=== PATIENT | male | born 1955 | race American Indian/Alaskan Native ===

== ENCOUNTER 2017-04-17 09:09 | Emergency (ER) | payer MEDICARE ==
--- NOTE | 2017-04-17 09:24 | Emergency Department Report ---
Chief Complaint: Skin Rash Stated Complaint: CHROHNS DISEASE/ Time Seen by Provider: 04/17/17 09:21 - HPI History of Present Illness: PT c/o rash to his L side of face x 1.5 months. PT states he has had rash on the right side of his face last year for 3 months. PT is concerned for having AIDS. - ROS Review of Systems: + weight loss - fevers + rash + drainage - Exam Physical Exam: thin male, with multiple dry scaly lesions to face and arms. + drainaged noted to L side of face MSE screening note: Focused history and physical exam performed. Due to findings the following was ordered: labs ED Disposition for MSE Condition: Stable
[2017-04-17 09:27] VITALS: BP 94/53
[2017-04-17 09:46] LABS: Basophils % (Auto) 0.4 % (0.0-1.8); Eosinophils % (Auto) 0.4 % (0.0-4.3); Hemoglobin 8.9 gm/dl (11.8-15.2); Mean Corpuscular HGB Conc 33 % (32-34); Mean Corpuscular Hemoglobin 31 pg (28-32); Mean Corpuscular Volume 95 fl (84-94); Platelet Count 328 K/mm3 (140-440); Red Blood Count 2.86 M/mm3 (3.65-5.03); White Blood Count 10.8 K/mm3 (4.5-11.0)
[2017-04-17 09:53] LABS: Red Cell Distribution Width 20.7 % (13.2-15.2)
[2017-04-17 10:16] LABS: Alanine Aminotransferase 6 units/L (7-56); Albumin 1.4 g/dL (3.9-5); Albumin/Globulin Ratio 0.2 %; Alkaline Phosphatase 81 units/L (35-129); Anion Gap 15 mmol/L; BUN/Creatinine Ratio 11.25; Blood Urea Nitrogen 9 mg/dL (9-20); Calcium 7.7 mg/dL (8.4-10.2); Carbon Dioxide 23 mmol/L (22-30); Chloride 101.7 mmol/L (98-107); Glucose 157 mg/dL (75-100); Potassium 3.2 mmol/L (3.6-5.0); Sodium 136 mmol/L (137-145); Total Protein 7.8 g/dL (6.3-8.2)
--- NOTE | 2017-04-17 13:24 | Admit Criteria Form ---
Admission Criteria Documentation: GENERAL ADMISSION CRITERIA (Place 'X' for any and all applicable criteria): Admission is indicated for ANY ONE of the following: [X ]I. Hemodynamic instability as indicated by ANY ONE of the following(1)(2 )(3)(4)(5): [X ]a) Vital sign abnormality not readily corrected by appropriate treatment within 12 to 24 hours indicated by ANY ONE of the following: [X ]i) Hypotension [ ]ii) Symptomatic Tachycardia unresponsive to treatment (eg , analgesia, fluids, sedation as indicated) [ ]iii) Orthostatic vital sign changes unresponsive to treatment (eg, fluids) [ ]b) Vital sign abnormality that is severe indicated by ANY ONE of the following: [ ]i) Inadequate perfusion indicated by ANY ONE of the following: [ ]1) Lactic acidosis (greater than 2 mmol/L) [ ]2) New abnormal capillary refill (greater than 3 seconds) [ ]3) Other metabolic acidosis (arterial pH less than 7.35) not otherwise explained [ ]4) Reduced urine output [ ]5) Altered mental status [ ]6) Myocardial Ischemia [ ]v) Mean arterial pressure[A] less than 60 mm Hg [ ]vi) Mean arterial pressure[A] less than 70 mm Hg after 30 minutes of appropriate treatment (eg, fluid resuscitation) [ ]vii) IV inotropic or vasopressor medication required to maintain adequate blood pressure or perfusion [ ]viii) Sustained heart rate greater than 120 beats per minute in adult or child 6 years or older[B]] [ ]II. Hypertension requiring inpatient treatment as indicated by ANY ONE of the following(6)(7)(8): [ ]a) SBP greater than 220 mm Hg or DBP greater than 120 mm Hg despite treatment [ ]b) SBP greater than 140 mm Hg or DBP greater than 100 mm Hg with evidence of acute end organ damage as indicated by ANY ONE of the following: [ ]i) Encephalopathy [ ]ii) Acute renal failure as indicated by new onset of ANY ONE of the following(9)(10)(11)(12)(13): [ ]1) A 3-fold rise in serum creatinine from baseline [ ]2) Serum creatinine greater than 4 mg/dL ( 354 micromoles/L) with acute rise greater than 0.5 mg/dL (44.2 micromoles/L) [ ]3) Reduction of more than 75% in estimated glomerular filtration rate from baseline [ ]4) Estimated glomerular filtration rate less than 35 mL/min/1.73m2 (0.59 mL/sec/1.73m2) in child up to 18 years of age [ ]5) Cessation of urine output indicated by ALL of the following: [ ]A. Adequate volume status [ ]B. Inadequate urine output as indicated by ANY ONE of the following: [ ]a. Urine output less than 0.3 mL/kg/hr for 24 hours [ ]b. Anuria (urine output less than 0.1 mL/kg/hr) for 12 hours [ ]iii) Aortic dissection [ ]iv) Myocardial ischemia [ ]v) Left ventricular heart failure [ ]vi) Retinal hemorrhage [ ]vii) Other significant finding [ ]c) Hypertension in child requiring inpatient treatment as indicated by ALL of the following(14)(15)(16): [ ]i) Outpatient treatment not effective, not available, or not appropriate [ ]ii) SBP or DBP greater than 95th percentile for age [ ]iii) Evidence of acute end organ damage as indicated by ANY ONE of the following: [ ]1) Altered mental status [ ]2) Acute renal failure as indicated by new onset of ANY ONE of the following(9)(10)(11)(12)(13): [ ]A. A 3-fold rise in serum creatinine from baseline [ ]B. Serum creatinine greater than 4 mg/dL (354 micromoles/L) with acute rise greater than 0.5 mg/dL (44.2 micromoles/L) [ ]C. Reduction of more than 75% in estimated glomerular filtration rate from baseline [ ]D. Estimated glomerular filtration rate less than 35 mL/min/1.73m2 (0.59 mL/sec/1.73m2)in child up to 18 years of age [ ]E. Cessation of urine output indicated by ALL of the following: [ ]a. Adequate volume status [ ]b. Inadequate urine output as indicated by ANY ONE of the following: [ ]1) Urine output less than 0.3 mL/kg/hr for 24 hours [ ]2) Anuria (urine output less than 0.1 mL/kg/hr) for 12 hours [ ]3) Severe headache [ ]4) Visual disturbance [ ]5) Retinal hemorrhage [ ]6) Other significant finding [ ]III. Acute cardiac or peripheral ischemia as indicated by ANY ONE of the following: [ ]a) Acute coronary syndrome(17)(18) [ ]b) Acute peripheral ischemia (eg, pulseless, cool, mottled, or cyanotic extremity)(19) [ ]IV. Cardiac arrhythmias or findings of immediate concern indicated by ANY ONE of the following(20)(21): [ ]a) Heart rhythms that are inherently dangerous or unstable indicated by ANY ONE of the following(22)(23)(24): [ ]i) Resuscitated ventricular fibrillation or cardiac arrest [ ]ii) Ventricular escape rhythm [ ]iii) Sustained ventricular tachycardia (30 seconds or more of ventricular rhythm at greater than 100 beats per minute) [ ]iv) Nonsustained ventricular tachycardia and ANY ONE of the following: [ ]1) Suspected cardiac ischemia as cause or consequence of ventricular tachycardia [ ]2) In setting of acute myocarditis [ ]b) Unstable cardiac conduction defects indicated by ANY ONE of the following(24)(25)(26): [ ]i) Type II second-degree atrioventricular block [ ]ii) Third-degree atrioventricular block [ ]iii) New-onset left bundle branch block with suspected myocardial ischemia [ ]c) Any heart rhythm and ANY ONE of the following(22)(23)(27)(28)( 29): [ ] i) Continuous long-term ECG monitoring needed (eg, initiation of drug requiring monitoring for more than 24 hours) [ ] ii) Patient has automatic implanted cardioverter defibrillator that is repeatedly firing, malfunctioning, or in need of immediate adjustment of settings beyond the scope of ambulatory or observation care. [ ]d) Heart rhythms of concern due to ANY ONE of the following: [ ]i) Hypotension [ ]ii) Respiratory distress [ ]iii) Association with other significant symptoms (eg, bradycardia with syncope or ongoing dizziness, supraventricular tachycardia with chest pain) (27)(28) (30) [ ] V. Severe heart failure as indicated by ANY ONE of the following ( 31)(32): [ ]a) Respiratory distress [ ]b) Hypotension [ ]c) Anasarca (refractory to outpatient therapy) [ ]d) Cardiac arrhythmias of immediate concern [ ]e) Myocardial ischemia [ ]. Respiratory abnormalities, including ANY ONE of the following(33)(34) (35)(36): [ ]a) Respiratory rate greater than 30 breaths per minute unresponsive to treatment [A] [ ]b) New saturation of arterial oxygen less than 90% [ ]c) New partial pressure of carbon dioxide greater than 44 mm Hg ( 5.9 kPa) [ ]d) Supplemental oxygen or respiratory treatments needed that are new or not performable at other levels of care [ ]e) New-onset cyanosis [ ]f) Inability to protect airway [ ]g) Chronic lung disease with severe deterioration (not responsive to emergency and observation care treatment as appropriate) as indicated by ANY ONE of the following(34)(36 ): [ ]i) SaO2 5% below baseline in patient with chronic hypoxemia [ ]ii) New requirement for supplemental oxygen to keep SaO2 at baseline or acceptable level [ ]iii) Required supplemental oxygen performable only in acute inpatient setting [ ]iv) Severe airflow or ventilation abnormalities [ ]v) Previously mobile patient unable to walk between rooms [ ]vi Inability to eat or sleep due to dyspnea [ ]vii) Rapid rate of exacerbation onset [ ]viii) Altered mental status ]VII. Severe airflow or ventilation abnormalities (not responsive to emergency and observation care treatment as appropriate) as indicated by ANY ONE of the following(33)(34)(35)(37): [ ]a) PCO2 greater than 42 mm Hg (5.6 kPa) and pH less than 7.35 (new ) [ ]b) Documented PCO2 increased more than 5 mm Hg (0.7 kPa) from disease baseline [ ]c) Airflow measurements [B] less than 60% of previous best or predicted (eg, peak expiratory flow rate less than 300 L/minute) despite intensive emergent treatment [C] [ ]d) Required respiratory treatments that are performable only in acute inpatient setting [ ]VIII. Impending or actual respiratory arrest ( Also use Respiratory Failure GRG for severe respiratory disease and long-term mechanical ventilation patients) [ ]IX. Neurologic abnormalities, including ANY ONE of the following: [ ]a) New findings that suggest ANY ONE of the following: [ ]i) CREDIT REFERENCE CLERK infection(38) [ ]ii) Cerebral bleeding, ischemia, or vasospasm(39)(40) [ ]iii) Increased intracranial pressure, hydrocephalus, or cerebral edema(41)(42)(43) [ ]iv) Spinal cord injury(44) [ ]b) Uncontrolled seizures(45) [ ]c) New-onset coma (eg, Efrain coma scale score less than 9) or unexplained abnormal mental status (eg, Valera coma scale score less than 14) [D](41)(46)(47) [ ]X. New-onset severe neurologic findings requiring inpatient care; examples include(42)(48)(49): [ ]a) Papilledema [ ]b) Cerebral edema [ ]c) Mass effect on CT scan [ ]XI. Suspected acute intra-abdominal process with peritoneal signs, abdominal mass, or similar findings (50)(51)(52) [ ]XII. Severe physiologic disorder remaining after emergency or observation level care (as appropriate) as indicated by ANY ONE of the following (53): [ ]a) Significant dehydration [ ]b) Diabetic ketoacidosis [ ]c) Hyperglycemic hyperosmolar state (eg, osmolality greater than 320 mOsm/kg (mmol/kg) [ ]d) Hypoglycemia [ ]e) Other (new) acid-base disorder with pH less than 7.35 or greater than 7.5(54) [ ]f) Thyroid storm (55) [ ]g) Myxedema coma (55) [ ]XIII. Abdominal abnormalities with ANY ONE of the following(56)(57): [ ]a) Absent bowel sounds with complete ileus [ ]b) Signs of intestinal obstruction or peritonitis [E] [ ]c) Nausea and vomiting that cannot be controlled with outpatient or observation care [ ]XIV. Acute renal failure as indicated by new onset of ANY ONE of the following(9)(10)(11)(12)(13): [ ]a) A 3-fold rise in serum creatinine from baseline [ ]b) Serum creatinine greater than 4 mg/dL (354 micromoles/L) with acute rise greater than 0.5 mg/dL (44.2 micromoles/L) [ ]c) Reduction of more than 75% in estimated glomerular filtration rate from baseline [ ]d) Estimated glomerular filtration rate less than 35 mL/min/ 1.73m2 (0.59 mL/sec/1.73m2) in child up to 18 years of age [ ]e) Cessation of urine output indicated by ALL of the following: [ ]i) Adequate volume status [ ]ii) Inadequate urine output as indicated by ANY ONE of the following: [ ]1) Urine output less than 0.3 mL/kg/hr for 24 hours [ ]2) Anuria (urine output less than 0.1 mL/kg/hr) for 12 hours [ ]XV. Significant uremic complications as indicated by ANY ONE of the following(58)(59)(60): [ ]a) Outpatient therapy is ineffective or not feasible for ANY ONE of the following: [ ]i) Severe heart failure [ ]ii) Severehypertension [ ]iii) Pleural effusion [ ]iv) Pericarditis or pericardial effusion [ ]b) Cardiac arrhythmias of immediate concern [ ]c) Intractable nausea or vomiting [ ]d) Recurrent seizures [ ]e) Encephalopathy [ ]f) Bleeding abnormalities (eg, platelet dysfunction) with active (eg, gastrointestinal) bleeding [ ]g) Dialysis indicated before long-term access or ambulatory arrangements can be made [ ]h) Significant metabolic or electrolyte abnormalities (eg, severe acidosis or hyperkalemia) [ ]XVI. High fever or other high-risk infection situation as indicated by ANY ONE of the following(61)(62)(63)(64): [ ]a) Outpatient and observation care antimicrobial treatment unavailable, not effective, or not appropriate [ ]b) Documented bacteremia [ ]c) Temperature greater than 40.5 degrees C (104.9 degrees F) ( oral) [ ]d) Temperature greater than 39.5 degrees C (103.1 degrees F) ( oral) or less than 36 degrees C (96.8 degrees F) (rectal) that does not respond to e treatment and observation care [ ] XVII. Temperature less than 95 degrees F (35 degrees C)(rectal)(65) [ ] XVIII. Severe nutritional abnormalities as indicated by ALL of the following (66)(67): [ ]a) Inability to tolerate or establish sufficient oral or other enteral nutrition in outpatient setting [ ]b) Parenteral nutrition regimen need that must be implemented on inpatient basis [ ] XIX. Severe electrolyte abnormalities indicated by ALL of the following(68) (69)(70): [ ]a) Electrolytes and associated findings are not as expected for patient baseline or acceptable treatment effects. [ ]b) Severe abnormalities indicated by ANY ONE of the following: [ ]i) Sodium less than 130 mEq/L (mmol/L) (new) [ ]ii)Sodium less than 135 mEq/L (mmol/L) with ANY ONE of the following: [ ]1) Uncorrectable (to near normal or chronic baseline) after trial of outpatient and emergency treatment [ ]2) Altered mental status [ ]3) Seizures [ ]4) Severe medical etiology requiring inpatient management (eg, heart failure, hypovolemia) [ ]iii) Sodium greater than 155 mEq/L (mmol/L) [ ]iv) Sodium greater than 150 mEq/L (mmol/L) with ANY ONE of the following: [ ]1) Uncorrectable (to near normal or chronic baseline) with outpatient and emergency treatment [ ]2) Altered mental status [ ]3) Seizures [ ]4) Severe medical etiology (eg, hypovolemia, diabetes insipidus) [ ]v) Potassium less than 2.5 mEq/L (mmol/L) despite outpatient and emergency treatment [ ]vi) Potassium less than 3 mEq/L (mmol/L) with ANY ONE of the following: [ ]1) Weakness [ ]2) Cardiac abnormality (eg, arrhythmia, conduction disturbance) [ ]3) Cardiac ischemia [ ]4) Ileus [ ]5) Ongoing medical cause requiring inpatient management (eg, acute renal wasting or SIADH) [ ]6) Other severe symptoms [ ]vii) Potassium greater than 6.5 mEq/L (mmol/L) [ ]viii) Potassium greater than 5 mEq/L (mmol/L) with ANY ONE of the following: [ ]1) Uncorrectable (to near normal or chronic baseline) with outpatient and emergency treatment [ ]2) Severe ECG findings [F] [ ]3) Acute worsening of renal failure (creatinine greater than 2.5 mg/dL (221 micromoles/L) or significant elevation for age and size) [ ]4) Severe weakness [ ]5) Severe medical etiology (eg, hemolysis, infection, drug overdose) [ ]ix) Calcium less than 7 mg/dL (1.75 mmol/L) despite outpatient and emergency treatment (72) [ ]x) Calcium less than 8 mg/dL (2 mmol/L) with significant symptoms or findings; examples include(72): [ ]1) Altered mental status [ ]2) Muscle spasms [ ]3) Seizures [ ]4) Breathing difficulty [ ]5) Cardiac abnormality (eg, arrhythmia or conduction disturbance) [ ]xi) Calcium greater than 14 mg/dL (3.5 mmol/L)(72) [ ]xii) Calcium greater than 12 mg/dL (3 mmol/L) with ANY ONE of the following(72): [ ]1) Uncorrectable (to near normal or chronic baseline) with outpatient and emergency treatment [ ]2) Significant dehydration or hypovolemia as indicated by ALL of the following(70)(73)(74): [ ]A. Not resolved with initial treatments [ ]B. Clinically significant dehydration as indicated by ANY ONE of the following: [ ]a. Vomiting refractory to outpatient treatment (ie, precluding oral rehydration) [ ]b. Inability to drink [ ]c. Hypernatremia or other electrolyte abnormality unable to be corrected with outpatient and emergency treatment [ ]d. Failure to remain hydrated with outpatient therapy [ ]e. Reduced urine output [ ]f. Hypotension [ ]g. Serious cause for dehydration requiring acute hospitalization (eg, bowel obstruction, increased intracranial pressure, infectious cause) [ ]h. Child with ANY ONE of the following(75): [ ]1) Severe abdominal tenderness [ ]2) Adequate care not available at home [ ]3) Severe dehydration ( greater than 9% loss of body weight) [ ]4) Significant symptoms or findings; examples include: [ ]A. Altered mental status [ ]B. Cardiac abnormality (eg, arrhythmia, conduction disturbance) [ ]C. Malignant etiology requiring inpatient treatment [ ]xiii) Phosphorus less than 1 mg/dL (0.32 mmol/L) [ ]xiv) Phosphorus less than 1.5 mg/dL (0.48 mmol/L) with ANY ONE of the following: [ ]1) Patient unresponsive to outpatient and emergency treatment [ ]2) Significant symptoms or findings; examples include: [ ]A. Weakness [ ]B. Altered mental status [ ]C. Breathing difficulty [ ]D. Seizures [ ]E. Rhabdomyolysis [ ]xv) Phosphorus greater than 10 mg/dL (3.2 mmol/L) [ ]xvi) Phosphorus greater than 4.5 mg/dL (1.45 mmol/L) (new) with ANY ONE of the following: [ ]1) Severe medical etiology (eg, crush injury, acute renal failure) [ ]2) Associated hypocalcemia with significant findings; examples include: [ ]A. Neurologic symptoms [ ]B. Altered mental status [ ]C. Muscle spasms [ ]D. Seizures [ ]E. Breathing difficulty [ ]F. Cardiac abnormality (eg, arrhythmia, conduction disturbance) [ ]xvii) Magnesium less than 1 mg/dL (0.41 mmol/L) [ ]xviii) Magnesium less than 1.5 mg/dL (0.62 mmol/L) with ANY ONE of the following: [ ]1) Patient unresponsive to outpatient and emergency treatment [ ]2) Associated hypocalcemia with significant findings; examples include: [ ]A. Altered mental status [ ]B. Muscle spasms [ ]C. Seizures [ ]D. Breathing difficulty [ ]E. Cardiac abnormality (eg, arrhythmia , conduction disturbance) [ ]3) Associated hypokalemia (potassium less than 3 mEq/L (mmol/L)) with risk of arrhythmia [ ]xix) Magnesium greater than 4 mEq/L (2 mmol/L) [ ]xx) Magnesium greater than 2.5 mEq/L (1.25 mmol/L) with significant symptoms or findings; examples include: [ ]1) Weakness [ ]2) Altered mental status [ ]3) Cardiac abnormality (eg, arrhythmia, conduction disturbance) [ ]4) Breathing difficulty [ ]5) Severe medical etiology (eg, renal failure, hypovolemia) [ ]xxi) Uric acid greater than 20 mg/dL (1190 micromoles/L)(76) [ ]xxii) Uric acid greater than 8 mg/dL (476 micromoles/L) with significant symptoms or findings of tumor lysis syndrome; examples include(76): [ ]1) Creatinine greater than 1.5 times upper limit of normal [ ]2) Cardiac abnormality (eg, arrhythmia, conduction disturbance) [ ]3) Seizure [ ]XX. Acute blood loss causing significant abnormality as indicated by ANY ONE of the following(77)(78): [ ]a) Hemoglobin less than 10 g/dL (100 g/L) (not baseline) [ ]b) Hematocrit less than 30% (0.30) (not baseline) [ ]c) Repeat hematocrit decreased more than 2% (0.02) [ ]d) Uncontrolled bleeding [ ]XXI. Severe anemia indicated by ANY ONE of the following(78)(79): [ ]a) Altered mental status [ ]b) Chest pain [ ]c) Exertional dyspnea [ ]d) Syncope [ ]e) Other findings suggesting inadequate perfusion [ ]f) Treatment with transfusion or volume replacement is ineffective at resolving ANY ONE of the following [G]: [ ]i) Tachycardia for age [ ]ii) Orthostatic vital sign changes as indicated by ANY ONE of the following(80): [ ]1) Fall in SBP of 20 mm Hg or more 1 to 3 minutes after patient sits or stands from recumbent position [ ]2) Fall in DBP of 10 mm Hg or more 1 to 3 minutes after patient sits or stands from recumbent position [ ]XXII. High-risk low platelet count as indicated by ANY ONE of the following( 81)(82): [ ]a) Severe or life-threatening bleeding (eg, intracranial, major gastrointestinal, or extensive mucosal bleeding), with any reduced platelet count [ ]b) Platelet count less than 20,000/mm3 (20 x109/L) with any active bleeding [ ]c) Platelet count less than 10,000/mm3 (10 x109/L) with minor purpura or petechiae [ ]d) Platelet count less than 5000/mm3 (5 x109/L) [ ]e) Low platelet count with hemolytic anemia [ ]XXIII. Disseminated intravascular coagulation(77)(83) [ ]XXIV. Severe adverse drug or systemic toxin reaction requiring inpatient treatment; examples include(84)(85): [ ]a) Serotonin syndrome(86) [ ]b) Neuroleptic malignant syndrome(86) [ ]c) Cholinergic syndrome with severe symptoms (eg, bronchorrhea, weakness, mental status changes, seizures) [ ]d) Sympathetic syndrome with severe symptoms (eg, seizures, mental status changes, cardiac dysrhythmias) [ ]e) Anticholinergic syndrome [ ]XXV. Severe pain requiring acute inpatient management as indicated by ALL of the following (87)(88)(89): [ ]a) Continuous or frequent (eg, every 2 to 4 hours) parenteral analgesics required [H] [ ]b) Rapid improvement expected from treatment or acute intervention (eg, surgery, anesthesia procedure) [ ]XXVI.Severe behavioral health issues judged unmanageable at a lower level of care (eg, residential) in a patient who is ANY ONE of the following(91) [ ]a) Acutely suicidal [ ]b) A danger to self (eg, self-mutilating or suicidal behavior) [ ]c) A danger to others (eg, assaultive or homicidal behavior) [ ]d) Incapacitated because of grave disability (eg, inability to provide for self at lower level of care) (92) [ ]XXVII. Inpatient monitoring needed; examples include(1)(3)(87)(93)(94)(95)(96 ): [ ]a) Vital signs, neurologic signs, or vascular checks more frequently than every 4 hours [ ]b) Cardiac or respiratory monitoring beyond the scope (eg, over 24 hours) of observation care [ ]c) Pulmonary artery catheter monitoring [ ]d) Suspected compartment syndrome(97) (98) [ ]e) Cerebral bleeding, hydrocephalus, or vasospasm monitoring [ ]f) Increased intracranial pressure or cerebral edema monitoring [ ]g) monitoring [ ]XXVIII. Treatment requiring inpatient care; examples include: [ ]a) IV fluid to replace significant ongoing losses (greater than 3 L/m2 per day)(53) [ ]b) High concentration oxygen (greater than 40%)(33)(99)(100) [ ]c) Frequent respiratory therapy (more frequently than every 4 hours) to maintain airflow rates greater than 60% of baseline(33)(99)(100) [ ]d) Epidural analgesia(87) [ ]e) IV anticoagulation, vasoactive, or antiarrhythmic medication(19 )(23) [ ]f) Acute thrombolytics (generally require 24 hours of observation )(101)(102) [ ]XXIX. Emergency procedures needed; examples include: [ ]a) Emergency inpatient surgery [ ]b) Temporary pacemaker placement(103) [ ]c) Chest tube placement with active evacuation (eg, suction, drainage)(104) [ ]d) Emergent cardioversion(105) [ ]e) Emergent cardiac or vascular procedures (eg, cardiac catheterization, angioplasty) (17)(18) [ ]f) Emergent dialysis access placement and institution(10)(106) [ ]g) Emergent pericardiocentesis(107) [ ]h) Emergent plasmapheresis or leukapheresis(83) [ ]i) Emergent tracheostomy The original [employer] content created by [employer] has been revised. The portions of the content which have been revised are identified through the use of italic text or in bold, and [employer] has neither reviewed nor approved the modified material. All other unmodified content is copyright [employer]. Please see references footnoted in the original [employer] edition 2016
[2017-04-17] MEDS ORDERED: CLEOCIN PO ONE (13:36)
--- NOTE | 2017-04-17 13:39 | Emergency Department Report ---
- General Chief complaint: Skin/Abscess/Foreign Body Stated complaint: CHROHNS DISEASE/ Time Seen by Provider: 04/17/17 09:21 Source: patient Mode of arrival: Ambulatory Limitations: No Limitations - History of Present Illness MD complaint: rash (generalized, similar symptoms with exacerbation of chrons) -: Gradual, week(s) Location: generalized Severity: mild Severity scale (0 -10): 1 Quality: aching Consistency: intermittent Improves with: none Worsens with: none Context: other (non-compliant with chrons medications) Associated symptoms: denies other symptoms - Related Data Previous Rx's Medication Instructions Recorded Last Taken Type Clindamycin [Clindamycin CAP] 300 mg PO Q8H #30 cap 04/17/17 Unknown Rx Allergies Allergy/AdvReac Type Severity Reaction Status Date / Time Sulfa (Sulfonamide AdvReac JAUNDICE Verified 04/17/17 09:18 Antibiotics) Abscess Boil HPI - HPI Chief Complaint: Skin/Abscess/Foreign Body Stated Complaint: CHROHNS DISEASE/ Time Seen by Provider: 04/17/17 09:21 Home Medications: Previous Rx's Medication Instructions Recorded Last Taken Type Clindamycin [Clindamycin CAP] 300 mg PO Q8H #30 cap 04/17/17 Unknown Rx Allergies/Adverse Reactions: Allergies Allergy/AdvReac Type Severity Reaction Status Date / Time Sulfa (Sulfonamide AdvReac JAUNDICE Verified 04/17/17 09:18 Antibiotics) ED Review of Systems ROS: Stated complaint: CHROHNS DISEASE/ Other details as noted in HPI Other: GENERAL: No weight change, fatigue, weakness, fever, chills, or night sweats SKIN: skin changes for over month believes that it is related to not taking chrons medications. Reports a doctor follows him for chrons in [place] HEAD: No trauma, headache, or visual changes EYES: No blurriness, tearing, itching, acute visual loss, conjunctival discoloration, or scleral icterus EARS: No hearing loss, tinnitus, vertigo, or earache NOSE: No rhinorrhea, stuffiness, sneezing, itching, or epistaxis MOUTH: No bleeding gums, hoarseness, sore throat, or swelling CARDIAC: No new murmur, chest pain, palpitations, dyspnea on exertion, orthopnea , PND, or edema RESPIRATORY: No shortness of breath, wheeze, cough, sputum production, hemoptysis, pneumonia, asthma, bronchitis, or emphysema GI: No change in appetite, nausea, vomiting, dysphagia, change in bowel frequency, diarrhea, constipation, bleeding, hematemesis, melena, hematochezia, or abdominal pain URINARY: No frequency, urgency, polyuria, dysuria, hematuria, or incontinence MUSCULOSKELETAL: No muscle weakness, joint stiffness, decrease in range of motion, redness, swelling, tenderness NEUROLOGIC: No loss of sensation, numbness, tingling, tremors, weakness, paralysis, seizures HEMATOLOGIC: No anemia, easy bruising, bleeding, petechiae, or purpura ENDOCRINE: No hot or cold intolerance, sweating, polyuria, polydipsia or, polyphagia no thyroid problems PSYCHIATRIC: No change in mood, no anxiety, no depression ED Past Medical Hx - Past Medical History Additional medical history: CROHNS DISEASE. ANEMIA - Surgical History Additional Surgical History: BOWEL RESECTION - Social History Smoking Status: Current Every Day Smoker Substance Use Type: Alcohol - Medications Home Medications: Home Medications Medication Instructions Recorded Confirmed Last Taken Type Clindamycin [Clindamycin CAP] 300 mg PO Q8H #30 cap 04/17/17 Unknown Rx ED Physical Exam - General Limitations: No Limitations - Other Other exam information: GENERAL: Patient in no acute distress HEAD: Normocephalic, atraumatic EYES: PERRLA, EOM intact, no scleral icterus, no conjunctival hemorrhage, visual ngo and acuity wnl, NOSE: No tenderness, discharge, sinus tenderness MOUTH: No erythema, bleeding, exudate HEART: Regular rate and rhythm, no murmur, S1-S2 are auscultated, pulses are symmetric LUNGS: No wheezing, rales, rhonchi, bilateral breath sounds ABDOMEN: Normal bowel sounds, no tenderness, no rebound, no guarding, no masses , no CVA tenderness MUSCULOSKELETAL: Normal joint range of motion, no redness, no swelling, no tenderness NEUROLOGIC: GCS 15, Alert and Oriented x3, Cranial nerves intact, normal sensation, normal strength, normal gait, no cerebellar deficit PSYCHIATRIC: No homicidal or suicidal ideation, no anxiety, no depression, no hallucinations SKIN: Skin is warm and dry, macular papular scabs generalized no discharge, no swelling ED Course Vital Signs 04/17/17 04/17/17 09:21 13:37 Temperature 97.6 F Pulse Rate 78 Respiratory 17 16 Rate Blood Pressure 94/53 O2 Sat by Pulse 100 98 Oximetry ED Medical Decision Making - Lab Data Result diagrams: 04/17/17 09:28 04/17/17 09:28 - Medical Decision Making Patient comfortable. Updated with results. Plan discharge with outpatient follow-up. Patient agrees with plan and will return if symptoms worsen. Engcouraged patient to follow up with his chrons doctor for evaluation for chrons medications. Critical care attestation.: If time is entered above; I have spent that time in minutes in the direct care of this critically ill patient, excluding procedure time. ED Disposition Clinical Impression: Cellulitis Qualifiers: Site of cellulitis: unspecified site Qualified Code(s): L03.90 - Cellulitis, unspecified Disposition: DC- TO HOME OR SELFCARE Is pt being admited?: No Condition: Stable Instructions: Cellulitis (ED) Prescriptions: Clindamycin [Clindamycin CAP] 300 mg PO Q8H #30 cap Referrals: [facility] [Primary Care Provider] - 2-3 Days [facility] [Provider Group] - 2-3 Days Time of Disposition: 13:38
--- NOTE | 2017-04-18 14:47 | Consultation ---
History of Present Illness - Reason for Consult Consult date: 04/18/17 Medications and Allergies Allergies Allergy/AdvReac Type Severity Reaction Status Date / Time Sulfa (Sulfonamide AdvReac JAUNDICE Verified 04/17/17 09:18 Antibiotics) Home Medications Medication Instructions Recorded Confirmed Last Taken Type Clindamycin [Clindamycin CAP] 300 mg PO Q8H #30 cap 04/17/17 Unknown Rx Mental Status Exam - Vital signs Last Vital Signs Temp 97.6 F 04/17/17 09:21 Pulse 78 04/17/17 09:21 Resp 16 04/17/17 13:37 BP 94/53 04/17/17 09:21 Pulse Ox 98 04/17/17 13:37 Results Result Diagrams: 04/17/17 09:28 04/17/17 09:28 All other labs normal. Assessment and Plan Assessment and plan: paranoid Recommendation: [id number]-discussed with Dr. Blake
== END 2017-04-17 14:35 | disposition home or self-care (01) ==
LOC: ED 09:09
DX: R21 Rash and other nonspecific skin eruption (principal); L03.818 Cellulitis of other sites; K50.90 Crohn's disease, unspecified, without complications; D64.9 Anemia, unspecified; F17.200 Nicotine dependence, unspecified, uncomplicated; Z88.2 Allergy status to sulfonamides
CPT/HCPCS: 36415; 80053; 84443; 85025; 99283

== ENCOUNTER 2017-05-04 05:34 | Emergency (ER) | payer MEDICARE ==
[2017-05-04 06:24] LABS: Basophils % (Auto) 0.2 % (0.0-1.8); Eosinophils % (Auto) 0.3 % (0.0-4.3); Hematocrit 28.5 % (35.5-45.6); Hemoglobin 9.3 gm/dl (11.8-15.2); Mean Corpuscular HGB Conc 33 % (32-34); Mean Corpuscular Hemoglobin 30 pg (28-32); Mean Corpuscular Volume 92 fl (84-94); Platelet Count 358 K/mm3 (140-440); Red Blood Count 3.11 M/mm3 (3.65-5.03); White Blood Count 12.4 K/mm3 (4.5-11.0)
[2017-05-04 06:31] LABS: Alanine Aminotransferase 6 units/L (7-56); Albumin 1.6 g/dL (3.9-5); Albumin/Globulin Ratio 0.3 %; Alkaline Phosphatase 80 units/L (35-129); Anion Gap 11 mmol/L; Blood Urea Nitrogen 12 mg/dL (9-20); Calcium 7.7 mg/dL (8.4-10.2); Carbon Dioxide 30 mmol/L (22-30); Chloride 102.2 mmol/L (98-107); Glucose 90 mg/dL (75-100); Sodium 140 mmol/L (137-145); Total Protein 7.5 g/dL (6.3-8.2)
[2017-05-04 06:39] LABS: Bilirubin,Direct < 0.2 mg/dL (0-0.2)
[2017-05-04] MEDS ORDERED: K-DUR PO ONE (06:46)
--- NOTE | 2017-05-04 06:46 | Emergency Department Report ---
ED General Adult HPI - General Chief complaint: Urogenital-Male Stated complaint: BLOOD IN URINE Time Seen by Provider: 05/04/17 06:44 Source: patient Mode of arrival: Ambulatory Limitations: No Limitations - History of Present Illness Initial comments: Patient states that he noted that he had blood in his urine last night and again when he urinated here. He does not complain of back pain. He does not complain of dysuria. He states he's had urine infections before but not kidney stones. He denies nausea vomiting or significant diarrhea. He states he would like to transfer his care from [facility] to a machine deburrer here in [facility]. He has a history of Crohn's disease and is on Remicade and mercaptopurine. He has a chronic skin disorder which she states she's been seen by dermatology clinic at [facility] for. He states that that periodically his skin lesions started to weep and he gets placed on antibiotics. He states this is secondary to his Crohns. He is not complaining of abdominal pain. -: Gradual Severity scale (0 -10): 0 Improves with: none Worsens with: none Associated Symptoms: denies other symptoms - Related Data Previous Rx's Medication Instructions Recorded Last Taken Type Clindamycin [Clindamycin CAP] 300 mg PO Q8H #30 cap 04/17/17 Unknown Rx Cefuroxime [Ceftin] 250 mg PO Q12H #14 tablet 05/04/17 Unknown Rx Allergies Allergy/AdvReac Type Severity Reaction Status Date / Time Sulfa (Sulfonamide AdvReac JAUNDICE Verified 04/17/17 09:18 Antibiotics) ED Review of Systems ROS: Stated complaint: BLOOD IN URINE Other details as noted in HPI Constitutional: denies: chills, fever Eyes: denies: eye pain, eye discharge, vision change ENT: denies: ear pain, throat pain Respiratory: denies: cough, shortness of breath, wheezing Cardiovascular: denies: chest pain, palpitations Endocrine: no symptoms reported Gastrointestinal: denies: abdominal pain, nausea, diarrhea Genitourinary: hematuria. denies: urgency, dysuria Musculoskeletal: denies: back pain, joint swelling, arthralgia Skin: as per HPI, rash, lesions Neurological: denies: headache, weakness, paresthesias Psychiatric: denies: anxiety, depression Hematological/Lymphatic: denies: easy bleeding, easy bruising ED Past Medical Hx - Past Medical History Previous Medical History?: Yes Additional medical history: CROHNS DISEASE. ANEMIA - Surgical History Past Surgical History?: Yes Additional Surgical History: BOWEL RESECTION - Social History Smoking Status: Current Every Day Smoker Substance Use Type: Alcohol - Medications Home Medications: Home Medications Medication Instructions Recorded Confirmed Last Taken Type Clindamycin [Clindamycin CAP] 300 mg PO Q8H #30 cap 04/17/17 Unknown Rx Cefuroxime [Ceftin] 250 mg PO Q12H #14 tablet 05/04/17 Unknown Rx ED Physical Exam - General Limitations: No Limitations General appearance: alert, in no apparent distress, cachectic (at least nutritionally deprived and asthenic) - Head Head exam: Present: atraumatic, normocephalic - Eye Eye exam: Present: normal appearance. Absent: scleral icterus - ENT ENT exam: Present: normal exam, mucous membranes moist - Neck Neck exam: Present: normal inspection - Respiratory Respiratory exam: Present: normal lung sounds bilaterally. Absent: respiratory distress - Cardiovascular Cardiovascular Exam: Present: regular rate, normal rhythm. Absent: systolic murmur, diastolic murmur, rubs, gallop - GI/Abdominal GI/Abdominal exam: Present: soft, normal bowel sounds. Absent: distended, tenderness, guarding, rebound, rigid - Rectal Rectal exam: Present: deferred - Extremities Exam Extremities exam: Present: normal inspection - Back Exam Back exam: Present: normal inspection - Neurological Exam Neurological exam: Present: alert, oriented X3, CN II-XII intact. Absent: motor sensory deficit - Psychiatric Psychiatric exam: Present: normal affect, normal mood - Skin Skin exam: Present: warm, dry, other (the patient has multiple elevated plaques some of which are oozing.). Absent: rash ED Course Vital Signs 05/04/17 05/04/17 05/04/17 05:45 05:52 07:26 Temperature 98.2 F 98.2 F Pulse Rate 73 73 Respiratory 20 20 Rate Blood Pressure 102/65 Blood Pressure 102/65 [Left] O2 Sat by Pulse 100 100 100 Oximetry 05/04/17 05/04/17 05/04/17 07:27 07:28 07:30 Temperature Pulse Rate 53 L Respiratory 17 Rate Blood Pressure 116/62 116/62 115/63 Blood Pressure [Left] O2 Sat by Pulse 100 100 100 Oximetry 05/04/17 08:00 Temperature Pulse Rate 47 L Respiratory 12 Rate Blood Pressure 104/65 Blood Pressure [Left] O2 Sat by Pulse 100 Oximetry - Reevaluation(s) Reevaluation #1: Going to begin this patient on ceftriaxone for his UTI now. Ceftin to follow. Appropriate referrals to urology and GI as well as primary care. I will encourage the patient to follow-up with [facility] until he is been accepted by local physicians. 05/04/17 09:16 ED Medical Decision Making - Lab Data Result diagrams: 05/04/17 05:58 05/04/17 05:58 Laboratory Results - last 24 hr 05/04/17 05/04/17 05:58 05:58 WBC 12.4 H RBC 3.11 L Hgb 9.3 L Hct 28.5 L MCV 92 MCH 30 MCHC 33 RDW 19.0 H Plt Count 358 Lymph % (Auto) 10.7 L [place] % (Auto) 11.4 H Eos % (Auto) 0.3 Baso % (Auto) 0.2 Lymph # 1.3 [place] # 1.4 H Eos # 0.0 Baso # 0.0 Seg Neutrophils % 77.4 H Seg Neutrophils # 9.6 H Sodium 140 Potassium 3.0 L Chloride 102.2 Carbon Dioxide 30 Anion Gap 11 BUN 12 Creatinine 1.0 Estimated GFR > 60 BUN/Creatinine Ratio 12.00 Glucose 90 Calcium 7.7 L Total Bilirubin 0.20 Direct Bilirubin < 0.2 Indirect Bilirubin 0.0 AST 8 ALT 6 L Alkaline Phosphatase 80 Total Protein 7.5 Albumin 1.6 L Albumin/Globulin Ratio 0.3 Laboratory Results - last 24 hr 05/04/17 05/04/17 05/04/17 05:58 05:58 06:15 WBC 12.4 H RBC 3.11 L Hgb 9.3 L Hct 28.5 L MCV 92 MCH 30 MCHC 33 RDW 19.0 H Plt Count 358 Lymph % (Auto) 10.7 L [place] % (Auto) 11.4 H Eos % (Auto) 0.3 Baso % (Auto) 0.2 Lymph # 1.3 [place] # 1.4 H Eos # 0.0 Baso # 0.0 Seg Neutrophils % 77.4 H Seg Neutrophils # 9.6 H Sodium 140 Potassium 3.0 L Chloride 102.2 Carbon Dioxide 30 Anion Gap 11 BUN 12 Creatinine 1.0 Estimated GFR > 60 BUN/Creatinine Ratio 12.00 Glucose 90 Calcium 7.7 L Total Bilirubin 0.20 Direct Bilirubin < 0.2 Indirect Bilirubin 0.0 AST 8 ALT 6 L Alkaline Phosphatase 80 Total Protein 7.5 Albumin 1.6 L Albumin/Globulin Ratio 0.3 Urine Color Yellow Urine Turbidity Clear Urine pH 5.0 Ur Specific [place] 1.017 Urine Protein 30 mg/dl Urine Glucose (UA) Neg Urine Ketones Neg Urine Blood Lg Urine Nitrite Neg Urine Bilirubin Neg Urine Urobilinogen < 2.0 Ur Leukocyte Esterase Tr Urine WBC (Auto) 51.0 H Urine RBC (Auto) > 182.0 Critical care attestation.: If time is entered above; I have spent that time in minutes in the direct care of this critically ill patient, excluding procedure time. ED Disposition Clinical Impression: UTI (urinary tract infection) Qualifiers: Urinary tract infection type: site unspecified Hematuria presence: with hematuria Qualified Code(s): N39.0 - Urinary tract infection, site not specified ; R31.9 - Hematuria, unspecified Crohns disease Qualifiers: Gastrointestinal tract location: unspecified location Digestive disease complication type: without complication Qualified Code(s): K50.90 - Crohn's disease, unspecified, without complications Disposition: - TO HOME OR SELFCARE Is pt being admited?: No Does the pt Need Aspirin: No Condition: Stable Instructions: Urinary Tract Infection in Men (ED), Crohn Disease (ED) Additional Instructions: Obviously had a very complicated case of Crohns. I certainly would recommend that you continue your care with [facility] until you get local physicians who have accepted a transfer of your care. You need to follow-up on your urine culture which will be ready in 2-3 days. Return to the emergency department any acute change or problem. Prescriptions: Cefuroxime [Ceftin] 250 mg PO Q12H #14 tablet Referrals: [facility] [Provider Group] - 3-5 Days [facility] [Provider Group] - 3-5 Days SONY OSULLIVAN MD [Staff Physician] - 3-5 Days [facility] [Provider Group] - 2-3 Days Time of Disposition: 09:18
[2017-05-04 06:53] LABS: Bilirubin,Urine NEG (Negative); Blood,Urine LG (Negative); Ketones,Urine NEG (Negative); Leukocyte Esterase,Urine TR (Negative); Nitrite,Urine NEG (Negative); Urobilinogen,Urine < 2.0 mg/dL (<2.0)
[2017-05-04 06:54] LABS: RBC,Urine > 182.0 /HPF (0.0-6.0)
[2017-05-04] MEDS ORDERED: ROCEPHIN IM ONE (09:22)
[2017-05-04] MEDS ORDERED: XYLOCAINE 1% MPF 5 mL INFILTRATI ONE (09:22)
[2017-05-04 09:36] VITALS: BP 125/59
== END 2017-05-04 09:36 | disposition home or self-care (01) ==
LOC: ED 05:34
DX: R31.9 Hematuria, unspecified (principal); N39.0 Urinary tract infection, site not specified; K50.90 Crohn's disease, unspecified, without complications; D64.9 Anemia, unspecified; F17.200 Nicotine dependence, unspecified, uncomplicated; Z88.2 Allergy status to sulfonamides
CPT/HCPCS: 36415; 80048; 80074; 81001; 85025; 87086; 96372; 99283; J0696

== ENCOUNTER 2017-11-24 15:28 | Emergency (ER) | payer MEDICARE ==
--- NOTE | 2017-11-24 18:11 | Emergency Department Report ---
- General Chief complaint: Skin Rash Stated complaint: SKIN INFECTION Time Seen by Provider: 11/24/17 18:01 Source: patient Mode of arrival: Ambulatory Limitations: No Limitations - History of Present Illness Initial comments: 62-year-old male past medical history Crohn's disease, anemia, chronic skin ulcerations presents with complaint of acute on chronic skin ulceration pain. Patient is awake alert and oriented 3 fully lucid. States that the lesions were hurting him which is why he came to the emergency department. Patient states he has not been on any medicines her management for his CHRONS disease in several months or possibly over one year. MD complaint: rash, other (chronic ulcerative skin lesions on extremities) Onset/Timin -: month(s) Location: LUE, RUE, LLE, RLE Severity: moderate Improves with: none Worsens with: none Context: none Associated symptoms: denies other symptoms Treatments Prior to Arrival: none - Related Data Previous Rx's Medication Instructions Recorded Last Taken Type traMADol [Ultram] 50 mg PO Q6HR PRN #10 tablet 17 06/05/16 Rx Doxycycline [Vibramycin CAP] 100 mg PO Q12HR 14 Days capsule 06/30/17 Unknown Rx azaTHIOprine [Imuran] 50 mg PO QDAY #30 tablet 06/30/17 Unknown Rx metroNIDAZOLE [Flagyl TAB] 500 mg PO Q8HR 14 Days tablet 06/30/17 Unknown Rx predniSONE [Deltasone] 20 mg PO QDAY #30 tablet 06/30/17 Unknown Rx Acetaminophen/Codeine [Tylenol 1 tab PO Q6H PRN #5 tab 11/24/17 Unknown Rx /Codeine # 3 tab] Cephalexin [Keflex] 500 mg PO BID #10 capsule 11/24/17 Unknown Rx Clobetasol Propionate [Clobex 1 applicatio TP BID #1 lotion 11/24/17 Unknown Rx 0.05%] Multivit-Min/Folic/Vit K/Lycop 1 each PO QDAY #1 bottle 11/24/17 Unknown Rx [Men's Daily Formula Tablet] predniSONE [Deltasone] 10 mg PO QDAY #3 tab 11/24/17 Unknown Rx predniSONE [Deltasone] 20 mg PO QDAY #3 tab 11/24/17 Unknown Rx Allergies Allergy/AdvReac Type Severity Reaction Status Date / Time Sulfa (Sulfonamide AdvReac JAUNDICE Verified 06/26/17 20:01 Antibiotics) Abscess Boil HPI - HPI Chief Complaint: Skin Rash Stated Complaint: SKIN INFECTION Time Seen by Provider: 11/24/17 18:01 Home Medications: Previous Rx's Medication Instructions Recorded Last Taken Type traMADol [Ultram] 50 mg PO Q6HR PRN #10 tablet 05/04/17 06/05/16 Rx Doxycycline [Vibramycin CAP] 100 mg PO Q12HR 14 Days capsule 06/30/17 Unknown Rx azaTHIOprine [Imuran] 50 mg PO QDAY #30 tablet 06/30/17 Unknown Rx metroNIDAZOLE [Flagyl TAB] 500 mg PO Q8HR 14 Days tablet 06/30/17 Unknown Rx predniSONE [Deltasone] 20 mg PO QDAY #30 tablet 06/30/17 Unknown Rx Acetaminophen/Codeine [Tylenol 1 tab PO Q6H PRN #5 tab 11/24/17 Unknown Rx /Codeine # 3 tab] Cephalexin [Keflex] 500 mg PO BID #10 capsule 11/24/17 Unknown Rx Clobetasol Propionate [Clobex 1 applicatio TP BID #1 lotion 11/24/17 Unknown Rx 0.05%] Multivit-Min/Folic/Vit K/Lycop 1 each PO QDAY #1 bottle 11/24/17 Unknown Rx [Men's Daily Formula Tablet] predniSONE [Deltasone] 10 mg PO QDAY #3 tab 11/24/17 Unknown Rx predniSONE [Deltasone] 20 mg PO QDAY #3 tab 11/24/17 Unknown Rx Allergies/Adverse Reactions: Allergies Allergy/AdvReac Type Severity Reaction Status Date / Time Sulfa (Sulfonamide AdvReac JAUNDICE Verified 06/26/17 20:01 Antibiotics) ED Review of Systems ROS: Stated complaint: SKIN INFECTION Other details as noted in HPI Constitutional: denies: chills, fever Eyes: denies: eye pain, eye discharge, vision change ENT: denies: ear pain, throat pain Respiratory: denies: cough, shortness of breath, wheezing Cardiovascular: denies: chest pain, palpitations Endocrine: no symptoms reported Gastrointestinal: denies: abdominal pain, nausea, diarrhea Genitourinary: denies: urgency, dysuria Musculoskeletal: denies: back pain, joint swelling, arthralgia Skin: as per HPI, rash, lesions Neurological: denies: headache, weakness, paresthesias Psychiatric: denies: anxiety, depression Hematological/Lymphatic: denies: easy bleeding, easy bruising ED Past Medical Hx - Past Medical History Previous Medical History?: Yes Hx Congestive Heart Failure: No Hx Diabetes: No Hx Asthma: No Hx COPD: No Additional medical history: CROHNS DISEASE. ANEMIA, Skin disorder - Surgical History Past Surgical History?: Yes Additional Surgical History: BOWEL RESECTION - Social History Smoking Status: Current Every Day Smoker Substance Use Type: Alcohol, Non Opiate Pain, Other - Medications Home Medications: Home Medications Medication Instructions Recorded Confirmed Last Taken Type traMADol [Ultram] 50 mg PO Q6HR PRN #10 tablet 05/04/17 06/26/17 06/05/16 Rx Doxycycline [Vibramycin CAP] 100 mg PO Q12HR 14 Days capsule 06/30/17 Unknown Rx azaTHIOprine [Imuran] 50 mg PO QDAY #30 tablet 06/30/17 Unknown Rx metroNIDAZOLE [Flagyl TAB] 500 mg PO Q8HR 14 Days tablet 06/30/17 Unknown Rx predniSONE [Deltasone] 20 mg PO QDAY #30 tablet 06/30/17 Unknown Rx Acetaminophen/Codeine [Tylenol 1 tab PO Q6H PRN #5 tab 11/24/17 Unknown Rx /Codeine # 3 tab] Cephalexin [Keflex] 500 mg PO BID #10 capsule 11/24/17 Unknown Rx Clobetasol Propionate [Clobex 1 applicatio TP BID #1 lotion 11/24/17 Unknown Rx 0.05%] Multivit-Min/Folic/Vit K/Lycop 1 each PO QDAY #1 bottle 11/24/17 Unknown Rx [Men's Daily Formula Tablet] predniSONE [Deltasone] 10 mg PO QDAY #3 tab 11/24/17 Unknown Rx predniSONE [Deltasone] 20 mg PO QDAY #3 tab 11/24/17 Unknown Rx ED Physical Exam - General Limitations: No Limitations General appearance: alert, in no apparent distress - Head Head exam: Present: atraumatic, normocephalic - Eye Eye exam: Present: normal appearance, PERRL, EOMI - ENT ENT exam: Present: mucous membranes moist - Neck Neck exam: Present: normal inspection - Respiratory Respiratory exam: Present: normal lung sounds bilaterally. Absent: respiratory distress - Cardiovascular Cardiovascular Exam: Present: regular rate, normal rhythm. Absent: systolic murmur, diastolic murmur, rubs, gallop - GI/Abdominal GI/Abdominal exam: Present: soft, normal bowel sounds - Rectal Rectal exam: Present: deferred - Extremities Exam Extremities exam: Present: normal inspection - Back Exam Back exam: Present: normal inspection, full ROM - Neurological Exam Neurological exam: Present: alert, oriented X3, CN II-XII intact, normal gait - Psychiatric Psychiatric exam: Present: normal affect, normal mood - Skin Skin exam: Present: warm, dry, intact, normal color, rash - Expanded Skin Exam Expanded Type of lesion: Present: rash Distribution of rash: generalized, involves palms/soles, RUE, LUE, RLE, LLE Description of rash: Present: erythematous, other (ulcerations suggestive of pyoderma gangrenosum distributed on the arms legs and face) ED Course Vital Signs 11/24/17 11/24/17 15:33 18:23 Temperature 98.4 F Pulse Rate 75 Respiratory 18 18 Rate Blood Pressure 117/64 O2 Sat by Pulse 100 Oximetry ED Medical Decision Making - Lab Data Result diagrams: 11/24/17 20:19 11/24/17 20:19 - Medical Decision Making A/P: 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 Short course of prednisone taper 3- as patient does have some signs of limited topical infection will cover him empirically with Keflex, this will also cover for cystitis 4- I encouraged patient to follow up with gastroenterology rheumatology and dermatology given the complexity of his Crohn's disease and his lack management of his Crohn's. I educated patient on signs and symptoms and management of Crohn's and pyoderma gangrenosum. I encouraged patient to increase healthy food in his diet 5- corrected calcium 9.1 [email or web address] 6- case discussed with Dr. Serotoff for discharge Critical care attestation.: If time is entered above; I have spent that time in minutes in the direct care of this critically ill patient, excluding procedure time. ED Disposition Clinical Impression: Pyoderma gangrenosum Disposition: TO HOME OR SELFCARE Is pt being admited?: No Does the pt Need Aspirin: No Condition: Stable Instructions: Clobetasol Propionate (On the skin) Additional Instructions: [email or web address] Prescriptions: Acetaminophen/Codeine [Tylenol /Codeine # 3 tab] 1 tab PO Q6H PRN #5 tab PRN Reason: Pain Cephalexin [Keflex] 500 mg PO BID #10 capsule Clobetasol Propionate [Clobex 0.05%] 1 applicatio TP BID #1 lotion Multivit-Min/Folic/Vit K/Lycop [Men's Daily Formula Tablet] 1 each PO QDAY #1 bottle predniSONE [Deltasone] 10 mg PO QDAY #3 tab predniSONE [Deltasone] 20 mg PO QDAY #3 tab Referrals: [facility] [Provider Group] - 3-5 Days [facility] [Provider Group] - 3-5 Days [facility] [Outside] - 3-5 Days Time of Disposition: 22:17
[2017-11-24] MEDS ORDERED: TYLENOL #3 PO ONE (18:13)
[2017-11-24 18:51] LABS: Bilirubin,Urine NEG (Negative); Blood,Urine LG (Negative); Color,Urine Yellow (Yellow); Mucus,Urine FEW /HPF; Nitrite,Urine NEG (Negative); Urobilinogen,Urine < 2.0 mg/dL (<2.0)
[2017-11-24 18:54] LABS: RBC,Urine > 182.0 /HPF (0.0-6.0)
[2017-11-24 21:01] LABS: BUN/Creatinine Ratio 5; Blood Urea Nitrogen 4 mg/dL (9-20); Hemolysis Index 55
[2017-11-24 21:07] LABS: Calcium 6.9 mg/dL (8.4-10.2)
[2017-11-24 21:22] LABS: Hematocrit 33.5 % (35.5-45.6); Hemoglobin 10.8 gm/dl (11.8-15.2); Mean Corpuscular HGB Conc 32 % (32-34); Mean Corpuscular Hemoglobin 32 pg (28-32); Mean Corpuscular Volume 99 fl (84-94); Platelet Count 253 K/mm3 (140-440); Red Blood Count 3.39 M/mm3 (3.65-5.03); Red Cell Distribution Width 17.3 % (13.2-15.2)
[2017-11-24 21:27] LABS: Basophils % (Auto) 0.2 % (0.0-1.8); Eosinophils % (Auto) 0.7 % (0.0-4.3); Lymphocytes % (Auto) 15.2 % (13.4-35.0); Monocytes % (Auto) 6.8 % (0.0-7.3)
[2017-11-24 21:28] LABS: Eosinophils # (Auto) 0.1 K/mm3 (0.0-0.4); Lymphocytes # (Auto) 1.7 K/mm3 (1.2-5.4); Monocytes # (Auto) 0.7 K/mm3 (0.0-0.8)
[2017-11-24 21:56] LABS: Alanine Aminotransferase 19 units/L (7-56); Albumin 1.3 g/dL (3.9-5)
[2017-11-24 21:57] LABS: Bilirubin,Direct < 0.2 mg/dL (0-0.2)
[2017-11-24 22:39] VITALS: BP 135/80
== END 2017-11-24 22:37 | disposition home or self-care (01) ==
LOC: ED 15:28
DX: L88 Pyoderma gangrenosum (principal); F17.200 Nicotine dependence, unspecified, uncomplicated; D64.9 Anemia, unspecified; Z88.2 Allergy status to sulfonamides
CPT/HCPCS: 36415; 80048; 80074; 81001; 82550; 85025; 87086; 99283

== ENCOUNTER 2018-05-06 12:11 | Emergency (ER) | payer MEDICARE ==
[2018-05-06 12:18] VITALS: BP 133/73
--- NOTE | 2018-05-06 13:23 | Emergency Department Report ---
- General Chief complaint: Skin Rash Stated complaint: CHRONS DISEASE Time Seen by Provider: 05/06/18 13:03 Source: patient Mode of arrival: Ambulatory Limitations: No Limitations - History of Present Illness Initial comments: Patient is a 62-year-old -[place] male with past medical history of Crohn's disease as well as metastatic Crohn's disease who is complaining of some increased discomfort in the lesions on his right upper extremity. Does not some purulent drainage associated with these sores. Patient has not followed up with dermatology as of yet. Patient denies any fevers chills nausea vomiting. Patient states the pain is 8 out of 10 in severity Quality: burning Consistency: constant - Related Data Previous Rx's Medication Instructions Recorded Last Taken Type traMADol [Ultram] 50 mg PO Q6HR PRN #10 tablet 05/04/17 06/05/16 Rx Doxycycline [Vibramycin CAP] 100 mg PO Q12HR 14 Days capsule 06/30/17 Unknown Rx azaTHIOprine [Imuran] 50 mg PO QDAY #30 tablet 06/30/17 Unknown Rx metroNIDAZOLE [Flagyl TAB] 500 mg PO Q8HR 14 Days tablet 06/30/17 Unknown Rx predniSONE [Deltasone] 20 mg PO QDAY #30 tablet 06/30/17 Unknown Rx Acetaminophen/Codeine [Tylenol 1 tab PO Q6H PRN #5 tab 11/24/17 Unknown Rx /Codeine # 3 tab] Cephalexin [Keflex] 500 mg PO BID #10 capsule 11/24/17 Unknown Rx Clobetasol Propionate [Clobex 1 applicatio TP BID #1 lotion 11/24/17 Unknown Rx 0.05%] Multivit-Min/Folic/Vit K/Lycop 1 each PO QDAY #1 bottle 11/24/17 Unknown Rx [Men's Daily Formula Tablet] predniSONE [Deltasone] 10 mg PO QDAY #3 tab 11/24/17 Unknown Rx predniSONE [Deltasone] 20 mg PO QDAY #3 tab 11/24/17 Unknown Rx Clindamycin [Clindamycin CAP] 300 mg PO Q8H 7 Days cap 05/06/18 Unknown Rx HYDROcodone/APAP 5-325 [[place] 1 each PO Q6HR PRN #15 tablet 05/06/18 Unknown Rx 5/325] Prednisone [predniSONE 5 mg (6-Day 5 mg PO .TAPER #1 tab.ds.pk 05/06/18 Unknown Rx Pack, 21 Tabs)] Allergies Allergy/AdvReac Type Severity Reaction Status Date / Time Sulfa (Sulfonamide AdvReac JAUNDICE Verified 06/26/17 20:01 Antibiotics) Abscess Boil HPI - HPI Chief Complaint: Skin Rash Stated Complaint: CHRONS DISEASE Time Seen by Provider: 05/06/18 13:03 Home Medications: Previous Rx's Medication Instructions Recorded Last Taken Type traMADol [Ultram] 50 mg PO Q6HR PRN #10 tablet 05/04/17 06/05/16 Rx Doxycycline [Vibramycin CAP] 100 mg PO Q12HR 14 Days capsule 06/30/17 Unknown Rx azaTHIOprine [Imuran] 50 mg PO QDAY #30 tablet 06/30/17 Unknown Rx metroNIDAZOLE [Flagyl TAB] 500 mg PO Q8HR 14 Days tablet 06/30/17 Unknown Rx predniSONE [Deltasone] 20 mg PO QDAY #30 tablet 06/30/17 Unknown Rx Acetaminophen/Codeine [Tylenol 1 tab PO Q6H PRN #5 tab 11/24/17 Unknown Rx /Codeine # 3 tab] Cephalexin [Keflex] 500 mg PO BID #10 capsule 11/24/17 Unknown Rx Clobetasol Propionate [Clobex 1 applicatio TP BID #1 lotion 11/24/17 Unknown Rx 0.05%] Multivit-Min/Folic/Vit K/Lycop 1 each PO QDAY #1 bottle 11/24/17 Unknown Rx [Men's Daily Formula Tablet] predniSONE [Deltasone] 10 mg PO QDAY #3 tab 11/24/17 Unknown Rx predniSONE [Deltasone] 20 mg PO QDAY #3 tab 11/24/17 Unknown Rx Clindamycin [Clindamycin CAP] 300 mg PO Q8H 7 Days cap 05/06/18 Unknown Rx HYDROcodone/APAP 5-325 [[place] 1 each PO Q6HR PRN #15 tablet 05/06/18 Unknown Rx 5/325] Prednisone [predniSONE 5 mg (6-Day 5 mg PO .TAPER #1 tab.ds.pk 05/06/18 Unknown Rx Pack, 21 Tabs)] Allergies/Adverse Reactions: Allergies Allergy/AdvReac Type Severity Reaction Status Date / Time Sulfa (Sulfonamide AdvReac JAUNDICE Verified 06/26/17 20:01 Antibiotics) ED Review of Systems ROS: Stated complaint: CHRONS DISEASE Other details as noted in HPI Comment: All other systems reviewed and negative ED Past Medical Hx - Past Medical History Previous Medical History?: Yes Hx Congestive Heart Failure: No Hx Diabetes: No Hx Asthma: No Hx COPD: No Additional medical history: CROHNS DISEASE. ANEMIA, Skin disorder - Surgical History Past Surgical History?: Yes Additional Surgical History: BOWEL RESECTION - Social History Smoking Status: Current Every Day Smoker Substance Use Type: Prescribed - Medications Home Medications: Home Medications Medication Instructions Recorded Confirmed Last Taken Type traMADol [Ultram] 50 mg PO Q6HR PRN #10 tablet 05/04/17 06/26/17 06/05/16 Rx Doxycycline [Vibramycin CAP] 100 mg PO Q12HR 14 Days capsule 06/30/17 Unknown Rx azaTHIOprine [Imuran] 50 mg PO QDAY #30 tablet 06/30/17 Unknown Rx metroNIDAZOLE [Flagyl TAB] 500 mg PO Q8HR 14 Days tablet 06/30/17 Unknown Rx predniSONE [Deltasone] 20 mg PO QDAY #30 tablet 06/30/17 Unknown Rx Acetaminophen/Codeine [Tylenol 1 tab PO Q6H PRN #5 tab 11/24/17 Unknown Rx /Codeine # 3 tab] Cephalexin [Keflex] 500 mg PO BID #10 capsule 11/24/17 Unknown Rx Clobetasol Propionate [Clobex 1 applicatio TP BID #1 lotion 11/24/17 Unknown Rx 0.05%] Multivit-Min/Folic/Vit K/Lycop 1 each PO QDAY #1 bottle 11/24/17 Unknown Rx [Men's Daily Formula Tablet] predniSONE [Deltasone] 10 mg PO QDAY #3 tab 11/24/17 Unknown Rx predniSONE [Deltasone] 20 mg PO QDAY #3 tab 11/24/17 Unknown Rx Clindamycin [Clindamycin CAP] 300 mg PO Q8H 7 Days cap 05/06/18 Unknown Rx HYDROcodone/APAP 5-325 [[place] 1 each PO Q6HR PRN #15 tablet 05/06/18 Unknown Rx 5/325] Prednisone [predniSONE 5 mg (6-Day 5 mg PO .TAPER #1 tab.ds.pk 05/06/18 Unknown Rx Pack, 21 Tabs)] ED Physical Exam - General Limitations: No Limitations General appearance: alert, in no apparent distress - Head Head exam: Present: atraumatic, normocephalic - Eye Eye exam: Present: normal appearance - ENT ENT exam: Present: mucous membranes moist - Neck Neck exam: Present: normal inspection - Respiratory Respiratory exam: Present: normal lung sounds bilaterally. Absent: respiratory distress, wheezes, rales, rhonchi - Cardiovascular Cardiovascular Exam: Present: regular rate, normal rhythm. Absent: systolic murmur, diastolic murmur, rubs, gallop - GI/Abdominal GI/Abdominal exam: Present: soft, normal bowel sounds - Rectal Rectal exam: Present: deferred - Extremities Exam Extremities exam: Present: normal inspection, other (patient has various healed lesions on the face lateral upper extremities and neck. Patient also on the right upper extremity has multiple large well-demarcated ulcerative lesions with some purulent surface material. There is some mild erythema surrounding these lesions.) - Back Exam Back exam: Present: normal inspection - Neurological Exam Neurological exam: Present: alert, oriented X3 - Psychiatric Psychiatric exam: Present: normal affect, normal mood - Skin Skin exam: Present: warm, dry, intact, normal color. Absent: rash ED Course Vital Signs 05/06/18 12:15 Temperature 97.8 F Pulse Rate 80 Respiratory 20 Rate Blood Pressure 133/73 O2 Sat by Pulse 100 Oximetry ED Medical Decision Making - Medical Decision Making Patient was again urged to follow with dermatology. Patient be started on clindamycin as well as Medrol Dosepak and pain meds and the patient be discharged home. Critical care attestation.: If time is entered above; I have spent that time in minutes in the direct care of this critically ill patient, excluding procedure time. ED Disposition Clinical Impression: Metastatic Crohn's disease of skin, Skin lesion Cellulitis Qualifiers: Site of cellulitis: extremity Site of cellulitis of extremity: upper extremity Laterality: right Qualified Code(s): L03.113 - Cellulitis of right upper limb Disposition: DC- TO HOME OR SELFCARE Is pt being admited?: No Does the pt Need Aspirin: No Condition: Stable Instructions: Cellulitis (ED) Prescriptions: Clindamycin [Clindamycin CAP] 300 mg PO Q8H 7 Days cap HYDROcodone/APAP 5-325 [[place] 5/325] 1 each PO Q6HR PRN #15 tablet PRN Reason: Pain Prednisone [predniSONE 5 mg (6-Day Pack, 21 Tabs)] 5 mg PO .TAPER #1 tab.ds.pk Referrals: PRIMARY CARE, [Primary Care Provider] - 3-5 Days
== END 2018-05-06 13:40 | disposition home or self-care (01) ==
LOC: ED 12:11
DX: L03.113 Cellulitis of right upper limb (principal); K50.90 Crohn's disease, unspecified, without complications; D64.9 Anemia, unspecified; F17.200 Nicotine dependence, unspecified, uncomplicated; Z88.2 Allergy status to sulfonamides
CPT/HCPCS: 99282

== ENCOUNTER 2019-02-02 09:04 | Emergency (ER) | payer MEDICARE ==
[2019-02-02 09:11] VITALS: BP 91/53
[2019-02-02] MEDS ORDERED: NACL 0.9% 1000 ML 1,000 ML IV ONE (09:11)
[2019-02-02 09:29] LABS: Basophils % (Auto) 0.2 % (0.0-1.8); Eosinophils % (Auto) 0.6 % (0.0-4.3); Hematocrit 32.2 % (35.5-45.6); Hemoglobin 11.1 gm/dl (11.8-15.2); Lymphocytes # (Auto) 1.9 K/mm3 (1.2-5.4); Lymphocytes % (Auto) 27.7 % (13.4-35.0); Mean Corpuscular HGB Conc 35 % (32-34); Mean Corpuscular Volume 99 fl (84-94); Monocytes # (Auto) 0.7 K/mm3 (0.0-0.8); Monocytes % (Auto) 10.4 % (0.0-7.3); Platelet Count 209 K/mm3 (140-440); Red Blood Count 3.27 M/mm3 (3.65-5.03); Red Cell Distribution Width 18.3 % (13.2-15.2)
[2019-02-02 09:48] LABS: Alanine Aminotransferase 18 units/L (7-56); Albumin 1.3 g/dL (3.9-5); BUN/Creatinine Ratio 6; Blood Urea Nitrogen 5 mg/dL (9-20); Calcium 6.9 mg/dL (8.4-10.2); Hemolysis Index 11
--- NOTE | 2019-02-02 10:11 | Emergency Department Report ---
ED Male HPI - General Chief complaint: Abdominal Pain Stated complaint: UTI Time Seen by Provider: 02/02/19 09:41 Source: patient Mode of arrival: Ambulatory Limitations: No Limitations - History of Present Illness Initial comments: Patient is a 63-year-old black female who states he began seeing blood in his urine last night. Patient has some mild dysuria as well. Patient denies any testicular pain or swelling or penile discharge. Patient states the pain is minimal is a 4 out of 10 in severity and suprapubic region. He denies any radiation to his back and flanks. Patient also states that for the past several days he's noticed some increased swelling in his bilateral lower extremities as well. He denies any chest pain shortness of breath fevers chills nausea vomiting at this time. - Related Data Previous Rx's Medication Instructions Recorded Last Taken Type traMADol [Ultram] 50 mg PO Q6HR PRN #10 tablet 05/04/17 06/05/16 Rx Doxycycline [Vibramycin CAP] 100 mg PO Q12HR 14 Days capsule 06/30/17 Unknown Rx azaTHIOprine [Imuran] 50 mg PO QDAY #30 tablet 06/30/17 Unknown Rx metroNIDAZOLE [Flagyl TAB] 500 mg PO Q8HR 14 Days tablet 06/30/17 Unknown Rx predniSONE [Deltasone] 20 mg PO QDAY #30 tablet 06/30/17 Unknown Rx Acetaminophen/Codeine [Tylenol 1 tab PO Q6H PRN #5 tab 11/24/17 Unknown Rx /Codeine # 3 tab] Cephalexin [Keflex] 500 mg PO BID #10 capsule 11/24/17 Unknown Rx Clobetasol Propionate [Clobex 1 applicatio TP BID #1 lotion 11/24/17 Unknown Rx 0.05%] Multivit-Min/Folic/Vit K/Lycop 1 each PO QDAY #1 bottle 11/24/17 Unknown Rx [Men's Daily Formula Tablet] predniSONE [Deltasone] 10 mg PO QDAY #3 tab 11/24/17 Unknown Rx predniSONE [Deltasone] 20 mg PO QDAY #3 tab 11/24/17 Unknown Rx Clindamycin [Clindamycin CAP] 300 mg PO Q8H 7 Days cap 05/06/18 Unknown Rx HYDROcodone/APAP 5-325 [[place] 1 each PO Q6HR PRN #15 tablet 05/06/18 Unknown Rx 5/325] Prednisone [predniSONE 5 mg (6-Day 5 mg PO .TAPER #1 tab.ds.pk 05/06/18 Unknown Rx Pack, 21 Tabs)] Amoxicillin 500 mg PO TID #21 capsule 09/10/18 Unknown Rx Chlorhexidine Mouthwash [Peridex] 15 ml MM BID #1 bottle 09/10/18 Unknown Rx Lidocaine Viscous 2% 5 ml MM Q3H PRN #120 udc 09/10/18 Unknown Rx Ciprofloxacin HCl [Cipro] 500 mg PO BID #14 tablet 02/02/19 Unknown Rx Ibuprofen [Ibu] 600 mg PO Q6HR PRN #20 tablet 02/02/19 Unknown Rx Phenazopyridine [Pyridium] 200 mg PO BID #6 tab 02/02/19 Unknown Rx traMADol [Ultram] 50 mg PO Q6HR PRN #12 tablet 02/02/19 Unknown Rx Allergies Allergy/AdvReac Type Severity Reaction Status Date / Time Sulfa (Sulfonamide AdvReac JAUNDICE Verified 06/26/17 20:01 Antibiotics) ED Review of Systems ROS: Stated complaint: UTI Other details as noted in HPI Comment: All other systems reviewed and negative ED Past Medical Hx - Past Medical History Previous Medical History?: Yes Hx Congestive Heart Failure: No Hx Diabetes: No Hx Asthma: No Hx COPD: No Additional medical history: CROHNS DISEASE. ANEMIA, Skin disorder - Surgical History Past Surgical History?: Yes Additional Surgical History: BOWEL RESECTION - Social History Smoking Status: Current Every Day Smoker Substance Use Type: None - Medications Home Medications: Home Medications Medication Instructions Recorded Confirmed Last Taken Type traMADol [Ultram] 50 mg PO Q6HR PRN #10 tablet 05/04/17 06/26/17 06/05/16 Rx Doxycycline [Vibramycin CAP] 100 mg PO Q12HR 14 Days capsule 06/30/17 Unknown Rx azaTHIOprine [Imuran] 50 mg PO QDAY #30 tablet 06/30/17 Unknown Rx metroNIDAZOLE [Flagyl TAB] 500 mg PO Q8HR 14 Days tablet 06/30/17 Unknown Rx predniSONE [Deltasone] 20 mg PO QDAY #30 tablet 06/30/17 Unknown Rx Acetaminophen/Codeine [Tylenol 1 tab PO Q6H PRN #5 tab 11/24/17 Unknown Rx /Codeine # 3 tab] Cephalexin [Keflex] 500 mg PO BID #10 capsule 11/24/17 Unknown Rx Clobetasol Propionate [Clobex 1 applicatio TP BID #1 lotion 11/24/17 Unknown Rx 0.05%] Multivit-Min/Folic/Vit K/Lycop 1 each PO QDAY #1 bottle 11/24/17 Unknown Rx [Men's Daily Formula Tablet] predniSONE [Deltasone] 10 mg PO QDAY #3 tab 11/24/17 Unknown Rx predniSONE [Deltasone] 20 mg PO QDAY #3 tab 11/24/17 Unknown Rx Clindamycin [Clindamycin CAP] 300 mg PO Q8H 7 Days cap 05/06/18 Unknown Rx HYDROcodone/APAP 5-325 [[place] 1 each PO Q6HR PRN #15 tablet 05/06/18 Unknown Rx 5/325] Prednisone [predniSONE 5 mg (6-Day 5 mg PO .TAPER #1 tab.ds.pk 05/06/18 Unknown Rx Pack, 21 Tabs)] Amoxicillin 500 mg PO TID #21 capsule 09/10/18 Unknown Rx Chlorhexidine Mouthwash [Peridex] 15 ml MM BID #1 bottle 09/10/18 Unknown Rx Lidocaine Viscous 2% 5 ml MM Q3H PRN #120 udc 09/10/18 Unknown Rx Ciprofloxacin HCl [Cipro] 500 mg PO BID #14 tablet 02/02/19 Unknown Rx Ibuprofen [Ibu] 600 mg PO Q6HR PRN #20 tablet 02/02/19 Unknown Rx Phenazopyridine [Pyridium] 200 mg PO BID #6 tab 02/02/19 Unknown Rx traMADol [Ultram] 50 mg PO Q6HR PRN #12 tablet 02/02/19 Unknown Rx ED Physical Exam - General Limitations: No Limitations General appearance: alert, in no apparent distress - Head Head exam: Present: atraumatic, normocephalic - Eye Eye exam: Present: normal appearance - ENT ENT exam: Present: mucous membranes moist - Neck Neck exam: Present: normal inspection - Respiratory Respiratory exam: Present: normal lung sounds bilaterally. Absent: respiratory distress, wheezes, rales, rhonchi - Cardiovascular Cardiovascular Exam: Present: regular rate, normal rhythm. Absent: systolic murmur, diastolic murmur, rubs, gallop - GI/Abdominal GI/Abdominal exam: Present: soft, normal bowel sounds. Absent: distended, tenderness, guarding, rebound, rigid - Rectal Rectal exam: Present: deferred - Extremities Exam Extremities exam: Present: normal inspection, joint swelling (patient with trace edema to the bilateral ankles) - Back Exam Back exam: Present: normal inspection - Neurological Exam Neurological exam: Present: alert, oriented X3 - Psychiatric Psychiatric exam: Present: normal affect, normal mood - Skin Skin exam: Present: warm, dry, intact, normal color. Absent: rash ED Course Vital Signs 02/02/19 09:10 Temperature 97.5 F L Pulse Rate 113 H Respiratory 18 Rate Blood Pressure 91/53 [Right] O2 Sat by Pulse 96 Oximetry ED Medical Decision Making - Lab Data Result diagrams: 02/02/19 09:14 02/02/19 09:14 Lab Results 02/02/19 02/02/19 02/02/19 Range/Units 09:14 09:14 09:53 WBC 6.7 (4.5-11.0) K/mm3 RBC 3.27 L (3.65-5.03) M/mm3 Hgb 11.1 L (11.8-15.2) gm/dl Hct 32.2 L (35.5-45.6) % MCV 99 H (84-94) fl MCH 34 H (28-32) pg MCHC 35 H (32-34) % RDW 18.3 H (13.2-15.2) % Plt Count 209 (140-440) K/mm3 Lymph % (Auto) 27.7 (13.4-35.0) % [place] % (Auto) 10.4 H (0.0-7.3) % Eos % (Auto) 0.6 (0.0-4.3) % Baso % (Auto) 0.2 (0.0-1.8) % Lymph # 1.9 (1.2-5.4) K/mm3 [place] # 0.7 (0.0-0.8) K/mm3 Eos # 0.0 (0.0-0.4) K/mm3 Baso # 0.0 (0.0-0.1) K/mm3 Seg Neutrophils % 61.1 (40.0-70.0) % Seg Neutrophils # 4.1 (1.8-7.7) K/mm3 Sodium 139 (137-145) mmol/L Potassium 3.2 L (3.6-5.0) mmol/L Chloride 104.9 (98-107) mmol/L Carbon Dioxide 26 (22-30) mmol/L Anion Gap 11 mmol/L BUN 5 L (9-20) mg/dL Creatinine 0.9 (0.8-1.5) mg/dL Estimated GFR > 60 ml/min BUN/Creatinine Ratio 6 % Glucose 138 H (75-100) mg/dL Calcium 6.9 L (8.4-10.2) mg/dL Total Bilirubin 0.40 (0.1-1.2) mg/dL AST 17 (5-40) units/L ALT 18 (7-56) units/L Alkaline Phosphatase 94 (35-129) units/L Total Protein 5.3 L (6.3-8.2) g/dL Albumin 1.3 L (3.9-5) g/dL Albumin/Globulin Ratio 0.3 % Urine Color Yellow (Yellow) Urine Turbidity Clear (Clear) Urine pH 6.0 (5.0-7.0) Ur Specific [place] 1.017 (1.003-1.030) Urine Protein <15 mg/dl (Negative) mg/dL Urine Glucose (UA) Neg (Negative) mg/dL Urine Ketones Neg (Negative) mg/dL Urine Blood Lg (Negative) Urine Nitrite Neg (Negative) Urine Bilirubin Neg (Negative) Urine Urobilinogen 2.0 (<2.0) mg/dL Ur Leukocyte Esterase Sm (Negative) Urine WBC (Auto) 21.0 H (0.0-6.0) /HPF Urine RBC (Auto) > 182.0 (0.0-6.0) /HPF U Epithel Cells (Auto) 1.0 (0-13.0) /HPF Urine Mucus Few /HPF - Medical Decision Making Patient's urinalysis does show evidence of cystitis with hematuria. Patient be started on antibiotics and medicines for symptomatic relief. The patient's bilateral trace foot edema likely is coming from the fact that the patient is not eating very well. Patient's albumin level and total protein was low on his labs. Patient instructed to supplement his diet with sure twice a day. Critical care attestation.: If time is entered above; I have spent that time in minutes in the direct care of this critically ill patient, excluding procedure time. ED Disposition Clinical Impression: Acute cystitis with hematuria, Abnormal albumin Edema Qualifiers: Edema type: localized Qualified Code(s): R60.0 - Localized edema Disposition: TO HOME OR SELFCARE Is pt being admited?: No Does the pt Need Aspirin: No Condition: Stable Instructions: Urinary Tract Infection in Men (ED) Additional Instructions: Please of movement your diet with ensure or boost to improve your protein levels. Referrals: PRIMARY CARE, [Referring] - 3-5 Days Time of Disposition: 10:52
[2019-02-02 10:14] LABS: Bilirubin,Urine NEG (Negative); Blood,Urine LG (Negative); Color,Urine Yellow (Yellow); Mucus,Urine FEW /HPF; Protein,Urine <15 mg/dL mg/dL (Negative)
[2019-02-02 10:24] LABS: RBC,Urine > 182.0 /HPF (0.0-6.0)
== END 2019-02-02 10:58 | disposition home or self-care (01) ==
LOC: ED 09:04
DX: N30.01 Acute cystitis with hematuria (principal); R60.0 Localized edema; E88.09 Other disorders of plasma-protein metabolism, not elsewhere classified; F17.200 Nicotine dependence, unspecified, uncomplicated; K50.90 Crohn's disease, unspecified, without complications; Z86.2 Personal history of diseases of the blood and blood-forming organs and certain disorders involving the immune mechanism; Z79.899 Other long term (current) drug therapy; Z88.2 Allergy status to sulfonamides
CPT/HCPCS: 36415; 80053; 81001; 85025; 99283

== ENCOUNTER 2019-05-20 11:24 | Emergency (ER) | payer MEDICARE ==
[2019-05-20] MEDS ORDERED: NACL 0.9% 1000 ML 1,000 ML IV ONE (11:38)
--- NOTE | 2019-05-20 11:40 | Event Note ---
ED Screening Note ED Screening Note: ill appearing weak with indigestion black tarry stools hx chrones disease smoker mom dec ca dad dec lung ca This initial assessment/diagnostic orders/clinical plan/treatment(s) is/are subject to change based on patients health status, clinical progression and re- assessment by fellow clinical providers in the ED. Further treatment and workup at subsequent clinical providers discretion. Patient/guardian urged not to elope from the ED as their condition may be serious if not clinically assessed and saira garcia. Initial orders include: ro acs ro gib
[2019-05-20 12:27] LABS: Hematocrit 29.1 % (35.5-45.6); Hemoglobin 10.3 gm/dl (11.8-15.2); Mean Corpuscular HGB Conc 35 % (32-34); Mean Corpuscular Volume 100 fl (84-94); Platelet Count 127 K/mm3 (140-440); Red Blood Count 2.91 M/mm3 (3.65-5.03); Red Cell Distribution Width 17.4 % (13.2-15.2)
[2019-05-20 12:47] LABS: Alanine Aminotransferase 13 units/L (7-56); BUN/Creatinine Ratio 6; Blood Urea Nitrogen 5 mg/dL (9-20); Calcium 7.3 mg/dL (8.4-10.2); Hemolysis Index 58
--- NOTE | 2019-05-20 13:07 | XRay Report ---
CHEST 2 VIEWS INDICATION / CLINICAL INFORMATION: chest pain. COMPARISON: None available. FINDINGS: SUPPORT DEVICES: None. HEART / MEDIASTINUM: No significant abnormality. LUNGS / PLEURA: Mild linear scarring in the right lower lobe and right upper lobe. No focal consolida tion or significant pleural effusion. No pneumothorax. ADDITIONAL FINDINGS: No significant additional findings. IMPRESSION: 1. No acute findings. Signer Name: Robert Fermin MD Signed: 05/20/2019 1:03 PM Workstation Name: [id number]
[2019-05-20] MEDS ORDERED: K-DUR PO ONE (15:21)
[2019-05-20] MEDS ORDERED: NACL 0.9% 1000 ML 1,000 ML ONE (15:54)
--- NOTE | 2019-05-20 16:07 | Vascular Lab Report ---
DUPLEX DOPPLER LOWER EXTREMITY VEINS, BILATERAL INDICATION: B/L pain and swelling. TECHNIQUE: Duplex doppler imaging was performed through the veins of both lower extremities using venous taylor venu and other maneuvers. COMPARISON: No relevant prior imaging study available. FINDINGS: Right Common femoral vein: Negative. Right Superficial femoral vein: Negative. Right Popliteal vein: Negative. Right Calf veins: Negative. Left Common femoral vein: Negative. Left Superficial femoral vein: Positive. Left Popliteal vein: Positive. Left Calf veins: Positive. Additional findings: None.. IMPRESSION: Acute DVT is demonstrated in the left superficial femoral, popliteal and proximal calf veins. Signer Name: Don Dickson Jr, MD Signed: 05/20/2019 4:03 PM Workstation Name: [id number]
--- NOTE | 2019-05-20 16:26 | XRay Report ---
RIGHT KNEE 3 VIEWS INDICATION / CLINICAL INFORMATION: knee pain COMPARISON: None available. FINDINGS: BONES / JOINT(S): No acute fracture or subluxation. No significant arthritis. SOFT TISSUES: No significant abnormality. ADDITIONAL FINDINGS: None. LEFT KNEE 3 VIEWS INDICATION / CLINICAL INFORMATION: knee pain COMPARISON: None available. FINDINGS: BONES / JOINT(S): No acute fracture or subluxation. No significant arthritis. SOFT TISSUES: No significant abnormality. ADDITIONAL FINDINGS: None. Signer Name: William Martínez MD Signed: 05/20/2019 4:21 PM Workstation Name: [id number]
[2019-05-20] MEDS ORDERED: ELIQUIS PO ONE (17:31)
--- NOTE | 2019-05-20 17:37 | Emergency Department Report ---
HPI - General Chief Complaint: Weakness Time Seen by Provider: 05/20/19 11:36 - HPI HPI: 63-year-old -[place] male presents to the emergency department with a few different complaints. He complains of some generalized fatigue. He also complains of some issues with "fluid" retention. Patient says that he had some previous facial swelling. He complains of some intermittent bilateral leg swelling. The patient is also complaining of some bilateral leg and knee pain. It hurts in the middle of his thigh and down through the knee. 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 Patient has a history of a GI bleed from about 2 or 3 years ago but denies any recent signs of rectal bleeding or signs of melena. He has a primary care physician but has not seen them regardin g his symptoms. He goes to [facility]. ED Past Medical Hx - Past Medical History Hx Congestive Heart Failure: No Hx Diabetes: No Hx Asthma: No Hx COPD: No Additional medical history: CROHNS DISEASE. ANEMIA, Skin disorder - Surgical History Additional Surgical History: BOWEL RESECTION - Social History Smoking Status: Current Some Day Smoker Substance Use Type: None - Medications Home Medications: Home Medications Medication Instructions Recorded Confirmed Last Taken Type traMADol [Ultram] 50 mg PO Q6HR PRN #10 tablet 05/04/17 06/26/17 06/05/16 Rx DOXYCYCLINE Hyclate [Vibramycin 100 mg PO Q12HR 14 Days capsule 06/30/17 Unknown Rx CAP] azaTHIOprine [Imuran] 50 mg PO QDAY #30 tablet 06/30/17 Unknown Rx metroNIDAZOLE [Flagyl TAB] 500 mg PO Q8HR 14 Days tablet 06/30/17 Unknown Rx predniSONE [Deltasone] 20 mg PO QDAY #30 tablet 06/30/17 Unknown Rx Acetaminophen/Codeine [Tylenol 1 tab PO Q6H PRN #5 tab 11/24/17 Unknown Rx /Codeine # 3 tab] Cephalexin [Keflex] 500 mg PO BID #10 capsule 11/24/17 Unknown Rx Clobetasol Propionate [Clobex 1 applicatio TP BID #1 lotion 11/24/17 Unknown Rx 0.05%] Multivit-Min/Folic/Vit K/Lycop 1 each PO QDAY #1 bottle 11/24/17 Unknown Rx [Men's Daily Formula Tablet] predniSONE [Deltasone] 10 mg PO QDAY #3 tab 11/24/17 Unknown Rx predniSONE [Deltasone] 20 mg PO QDAY #3 tab 11/24/17 Unknown Rx Clindamycin [Clindamycin CAP] 300 mg PO Q8H 7 Days cap 05/06/18 Unknown Rx HYDROcodone/APAP 5-325 [Fork 1 each PO Q6HR PRN #15 tablet 05/06/18 Unknown Rx 5/325] Prednisone [predniSONE 5 mg (6-Day 5 mg PO .TAPER #1 tab.ds.pk 05/06/18 Unknown Rx Pack, 21 Tabs)] Amoxicillin 500 mg PO TID #21 capsule 09/10/18 Unknown Rx Chlorhexidine Mouthwash [Peridex] 15 ml MM BID #1 bottle 09/10/18 Unknown Rx Lidocaine Viscous 2% 5 ml MM Q3H PRN #120 udc 09/10/18 Unknown Rx Ciprofloxacin HCl [Cipro] 500 mg PO BID #14 tablet 02/02/19 Unknown Rx Ibuprofen [Ibu] 600 mg PO Q6HR PRN #20 tablet 02/02/19 Unknown Rx Phenazopyridine [Pyridium] 200 mg PO BID #6 tab 02/02/19 Unknown Rx traMADol [Ultram] 50 mg PO Q6HR PRN #12 tablet 02/02/19 Unknown Rx Apixaban [Eliquis] 5 mg PO BID #74 tablet 05/20/19 Unknown Rx ED Review of Systems ROS: Stated complaint: WEAKNESS/FATIGUE Other details as noted in HPI Comment: All other systems reviewed and negative Constitutional: denies: chills, fever Eyes: denies: eye pain, vision change ENT: denies: ear pain, throat pain Respiratory: denies: cough, shortness of breath Cardiovascular: edema. denies: chest pain, palpitations Gastrointestinal: denies: nausea, vomiting, hematemesis, melena, hematochezia Genitourinary: denies: dysuria, discharge Musculoskeletal: arthralgia, myalgia Skin: denies: rash, lesions Neurological: denies: headache, numbness, paresthesias Physical Exam - Physical Exam Vital Signs: Vital Signs 0705/20/19 05/20/19 11:35 14:22 14:30 Temperature 97.7 F Pulse Rate 83 69 55 L Respiratory 19 12 14 Rate Blood Pressure 108/68 Blood Pressure 96/53 [Left] O2 Sat by Pulse 100 100 100 Oximetry 05/20/19 05/20/19 15:00 16:36 Temperature Pulse Rate 57 L 55 L Respiratory 13 9 L Rate Blood Pressure 107/68 111/64 Blood Pressure [Left] O2 Sat by Pulse 100 97 Oximetry Physical Exam: GENERAL: The patient is well-developed well-nourished. HENT: Normocephalic. Atraumatic. Patient has moist mucous membranes. EYES: Extraocular motions are intact. Pupils equal reactive to light bilaterally. NECK: Supple. Trachea is midline. CHEST/LUNGS: Clear to auscultation. There is no respiratory distress noted. HEART/CARDIOVASCULAR: Regular. There is no tachycardia. There is no murmur. ABDOMEN: Abdomen is soft, nontender. Patient has normal bowel sounds. There is no abdominal distention. SKIN: Skin is warm and dry. NEURO: The patient is awake, alert, and oriented. The patient is cooperative. The patient has no focal neurologic deficits. The patient has normal speech. Cranial nerves II through XII grossly intact. MUSCULOSKELETAL: There is no tenderness or deformity. There is no limitation range of motion. There is no evidence of acute injury. ED Course Vital Signs 05/20/19 05/20/19 05/20/19 11:35 14:22 14:30 Temperature 97.7 F Pulse Rate 83 69 55 L Respiratory 19 12 14 Rate Blood Pressure 108/68 Blood Pressure 96/53 [Left] O2 Sat by Pulse 100 100 100 Oximetry 05/20/19 05/20/19 15:00 16:36 Temperature Pulse Rate 57 L 55 L Respiratory 13 9 L Rate Blood Pressure 107/68 111/64 Blood Pressure [Left] O2 Sat by Pulse 100 97 Oximetry ED Medical Decision Making - Lab Data Result diagrams: 05/20/19 11:50 05/20/19 11:50 - EKG Data -: EKG Interpreted by Co EKG shows normal: sinus rhythm, axis, intervals, QRS complexes, ST-T waves Rate: normal - EKG Data When compared to previous EKG there are: previous EKG unavailable Interpretation: normal EKG - Radiology Data Radiology results: report reviewed, image reviewed interpreted by me: Chest x-ray does not show any acute process. There are no pleural effusions, obvious pneumonia and there is no pneumothorax. X-ray of the bilateral knees does not drink fracture, dislocation or any acute process. DUPLEX DOPPLER LOWER EXTREMITY VEINS, BILATERAL INDICATION: B/L pain and swelling. TECHNIQUE: Duplex doppler imaging was performed through the veins of both lower extremities using venous compression and other maneuvers. COMPARISON: No relevant prior imaging study available. FINDINGS: Right Common femoral vein: Negative. Right Superficial femoral vein: Negative. Right Popliteal vein: Negative. Right Calf veins: Negative. Left Common femoral vein: Negative. Left Superficial femoral vein: Positive. Left Popliteal vein: Positive. Left Calf veins: Positive. Additional findings: None.. IMPRESSION: Acute DVT is demonstrated in the left superficial femoral, popliteal and proximal calf veins. - Medical Decision Making This patient initially came in with the complaint of some fatigue and generalized weakness but my examination he complained of some pain and swelling to the legs. The pain is mostly in the bilateral thighs and the swelling is intermittent. I do not see any significant appreciable swelling and I cannot reproduce the tenderness to palpation. He had a chest x-ray that did not show any acute process. Bilateral knee x-rays did not show any acute process including any fracture or subluxation or dislocation. However bilateral lower extremity venous duplex Dopplers did show a left-sided acute DVT to the left superficial femoral, popliteal and proximal calf veins. As the patient had a previous history of a GI bleed 2 or 3 years ago, I did a rectal examination was no sign of any rectal bleeding. Patient has a stable hemoglobin. He did have some thrombocytopenia but it was only about 127 and not a concern for any spontaneous bleeding. The patient is aware of the thrombocytopenia and will need to follow up with primary care. He was given a dose of Eliquis and we kept here for 2 hours until therapeutic. He was given a referral for vascular surgery. The patient will return to the ER with any worsening of his symptoms or any acute distress. Prior to discharge, the patient was seen ambulatory in the emergency department and both appears and feels stable. - Differential Diagnosis anemia, DVT, osteoarthritis, hypoglycemia, dysrhythmia Critical Care Time: No Critical care attestation.: If time is entered above; I have spent that time in minutes in the direct care of this critically ill patient, excluding procedure time. ED Disposition Clinical Impression: Hypokalemia, Thrombocytopenia Acute deep vein thrombosis (DVT) of left lower extremity Qualifiers: Affected thrombotic vein of extremity: unspecified vein of extremity Qualified Code(s): I82.402 - Acute embolism and thrombosis of unspecified deep veins of left lower extremity Disposition: TO HOME OR SELFCARE Is pt being admited?: No Condition: Stable Instructions: Apixaban (By mouth), Hypokalemia (ED), Deep Venous Thrombosis (ED), Thrombocytopenia (ED) Additional Instructions: Please follow-up with your primary care physician in the next few days without fail. I'm giving you a referral for a local vascular surgeon, to follow up regarding your left leg DVT. I have prescribed for you anticoagulation as a treatment for your DVT, Eliquis. This medication will thin your blood and make you more prone to bruising or bleeding. Therefore, please take precautions to avoid any falls, head injuries, or any potential trauma. Return to the emergency department or call 911 if any signs of bleeding. Return to the emergency Department with any worsening of your symptoms, or with any acute distress. Prescriptions: Apixaban [Eliquis] 5 mg PO BID #74 tablet Referrals: YING VELASQUEZ MD [Staff Physician] - 3-5 Days MICHELLE HAGAN MD [Primary Care Provider] - [facility] Time of Disposition: 20:02
[2019-05-20 18:57] LABS: Bilirubin,Urine NEG (Negative); Blood,Urine NEG (Negative); Color,Urine Yellow (Yellow); Protein,Urine <15 mg/dL mg/dL (Negative); Urobilinogen,Urine < 2.0 mg/dL (<2.0)
[2019-05-20 20:00] VITALS: BP 114/70
== END 2019-05-20 20:00 | disposition home or self-care (01) ==
LOC: ED 11:24
DX: E87.6 Hypokalemia (principal); D69.6 Thrombocytopenia, unspecified; I82.402 Acute embolism and thrombosis of unspecified deep veins of left lower extremity; F17.200 Nicotine dependence, unspecified, uncomplicated; Z87.19 Personal history of other diseases of the digestive system; Z86.2 Personal history of diseases of the blood and blood-forming organs and certain disorders involving the immune mechanism
CPT/HCPCS: 36415; 71046; 73562; 80053; 81001; 84443; 84484; 85027; 93005; 93010; 93970; 99285; J7030

== ENCOUNTER 2019-06-09 20:44 | Emergency (ER) | payer MEDICARE ==
[2019-06-09] MEDS ORDERED: ZOFRAN IV ONE (21:40)
[2019-06-09] MEDS ORDERED: NACL 0.9% 1000 ML 1,000 ML IV ONE (21:40)
[2019-06-09] MEDS ORDERED: SUBLIMAZE IV ONE (21:40)
--- NOTE | 2019-06-09 21:48 | Emergency Department Report ---
HPI - General Chief Complaint: Fall Time Seen by Provider: 06/09/19 21:30 - HPI HPI: Perez Ferguson The patient is a 64-year-old male presenting with chief complaint of pain after fall. Patient states this evening is coming down the stairs when his legs gave out causing him to fall down all 10 stairs. Patient denies loss of consciousness but complains of pain in his neck, bilateral shoulders and bilateral hips. Patient gets his pain score of 8/10 Location: [See above] Duration: [See above] Quality: [See above] Severity: [See above] Modifying factors: [see above] Context: [see above] Mode of transportation: [not driving] ED Past Medical Hx - Past Medical History Previous Medical History?: Yes Hx Psychiatric Treatment: Yes (bipolar and schiozo affective) Additional medical history: CROHNS DISEASE. ANEMIA, Skin disorder, DVT - Surgical History Past Surgical History?: Yes Additional Surgical History: BOWEL RESECTION - Family History Family history: no significant - Social History Smoking Status: Light Tobacco Smoker Substance Use Type: Alcohol - Medications Home Medications: Home Medications Medication Instructions Recorded Confirmed Last Taken Type traMADol [Ultram] 50 mg PO Q6HR PRN #10 tablet 05/04/17 06/26/17 06/05/16 Rx DOXYCYCLINE Hyclate [Vibramycin 100 mg PO Q12HR 14 Days capsule 06/30/17 Unknown Rx CAP] azaTHIOprine [Imuran] 50 mg PO QDAY #30 tablet 06/30/17 Unknown Rx metroNIDAZOLE [Flagyl TAB] 500 mg PO Q8HR 14 Days tablet 06/30/17 Unknown Rx predniSONE [Deltasone] 20 mg PO QDAY #30 tablet 06/30/17 Unknown Rx Acetaminophen/Codeine [Tylenol 1 tab PO Q6H PRN #5 tab 11/24/17 Unknown Rx /Codeine # 3 tab] Cephalexin [Keflex] 500 mg PO BID #10 capsule 11/24/17 Unknown Rx Clobetasol Propionate [Clobex 1 applicatio TP BID #1 lotion 11/24/17 Unknown Rx 0.05%] Multivit-Min/Folic/Vit K/Lycop 1 each PO QDAY #1 bottle 11/24/17 Unknown Rx [Men's Daily Formula Tablet] predniSONE [Deltasone] 10 mg PO QDAY #3 tab 11/24/17 Unknown Rx predniSONE [Deltasone] 20 mg PO QDAY #3 tab 11/24/17 Unknown Rx Clindamycin [Clindamycin CAP] 300 mg PO Q8H 7 Days cap 05/06/18 Unknown Rx HYDROcodone/APAP 5-325 [[place] 1 each PO Q6HR PRN #15 tablet 05/06/18 Unknown Rx 5/325] Prednisone [predniSONE 5 mg (6-Day 5 mg PO .TAPER #1 tab.ds.pk 05/06/18 Unknown Rx Pack, 21 Tabs)] Amoxicillin 500 mg PO TID #21 capsule 09/10/18 Unknown Rx Chlorhexidine Mouthwash [Peridex] 15 ml MM BID #1 bottle 09/10/18 Unknown Rx Lidocaine Viscous 2% 5 ml MM Q3H PRN #120 udc 09/10/18 Unknown Rx Ciprofloxacin HCl [Cipro] 500 mg PO BID #14 tablet 02/02/19 Unknown Rx Ibuprofen [Ibu] 600 mg PO Q6HR PRN #20 tablet 02/02/19 Unknown Rx Phenazopyridine [Pyridium] 200 mg PO BID #6 tab 02/02/19 Unknown Rx traMADol [Ultram] 50 mg PO Q6HR PRN #12 tablet 02/02/19 Unknown Rx Apixaban [Eliquis] 5 mg PO BID #74 tablet 05/20/19 Unknown Rx ED Review of Systems ROS: Stated complaint: NECK PAIN Other details as noted in HPI Constitutional: no symptoms reported Eyes: denies: eye pain ENT: denies: throat pain Respiratory: no symptoms reported Cardiovascular: denies: chest pain Endocrine: no symptoms reported Gastrointestinal: abdominal pain (with palpation) Genitourinary: denies: dysuria Musculoskeletal: back pain, arthralgia, myalgia Neurological: denies: other (no syncope) Physical Exam - Physical Exam Vital Signs: Vital Signs 06/09/19 21:06 Temperature 98.4 F Pulse Rate 76 Respiratory 18 Rate Blood Pressure 94/58 O2 Sat by Pulse 100 Oximetry Physical Exam: GENERAL: The patient is well-developed well-nourished male lying on backboard with cervical collar in place that appear to be in acute distress. Patient was removed from the backboard using ATLS protocols HEENT: Normocephalic. Atraumatic. Extraocular motions are intact. Patient has moist mucous membranes. NECK: Supple. Trachea midline. No axial step off CHEST/LUNGS: Clear to auscultation. There is no respiratory distress noted. HEART/CARDIOVASCULAR: Regular. There is no tachycardia. There is no gallop rub or murmur. ABDOMEN: Abdomen is soft, with discomfort to palpation in the left upper quadrant. Patient has normal bowel sounds. There is no abdominal distention. SKIN: There is no rash. There is no edema. There is no diaphoresis. NEURO: The patient is awake, alert, and oriented. The patient is cooperative. The patient has no focal neurologic deficits. The patient has normal speech MUSCULOSKELETAL: There is tenderness to palpation of the thoracic spine. Scoliosis versus step off mid to low thoracic spine. There is no tenderness to palpation of bilateral shoulders or bilateral upper extremities. No tenderness to palpation of bilateral clavicles. There is no tenderness to palpation of the left lower extremity. Mild tenderness to palpation of the right thigh. There is no tenderness to palpation of the right tib-fib ED Course Vital Signs 06/09/19 21:06 Temperature 98.4 F Pulse Rate 76 Respiratory 18 Rate Blood Pressure 94/58 O2 Sat by Pulse 100 Oximetry - Consultations Consultation #1: 06/10/19 03:13 [place] transfer line called- transfer services states neurosurgeon has deferred to [facility] transfer given trauma component 06/10/19 03:27 [facility] transfer line called- will discuss with physician and call back 06/10/19 03:57 Patient accepted in transfer by [facility] physician Dr. Nieto ED Medical Decision Making - Lab Data Result diagrams: 06/09/19 22:24 06/09/19 22:24 Laboratory Tests 06/09/19 06/09/19 06/09/19 22:24 22:24 22:24 WBC 4.1 L RBC 1.96 L Hgb 6.7 L Hct 19.3 L* MCV 99 H MCH 34 H MCHC 35 H RDW 15.7 H Plt Count 83 L Lymph % (Auto) 42.7 H [place] % (Auto) 5.2 Eos % (Auto) 0.5 Baso % (Auto) 0.1 Lymph # 1.7 [place] # 0.2 Eos # 0.0 Baso # 0.0 Seg Neutrophils % 51.5 Seg Neutrophils # 2.1 PT 75.5 H INR 9.43 H* APTT 52.4 H Sodium 142 Potassium 2.5 L* Chloride 111.3 H Carbon Dioxide 19 L Anion Gap 14 BUN 14 Creatinine 1.9 H Estimated GFR 44 BUN/Creatinine Ratio 7 Glucose 82 Calcium 6.9 L Total Bilirubin 0.30 AST 19 ALT 18 Alkaline Phosphatase 69 Total Creatine Kinase 94 CK-MB (CK-2) 3.0 CK-MB (CK-2) Rel Index 3.1 Troponin T 0.013 Total Protein 4.4 L Albumin 0.8 L Albumin/Globulin Ratio 0.2 Blood Type Antibody Screen Crossmatch 06/09/19 22:24 WBC RBC Hgb Hct MCV MCH MCHC RDW Plt Count Lymph % (Auto) [place] % (Auto) Eos % (Auto) Baso % (Auto) Lymph # [place] # Eos # Baso # Seg Neutrophils % Seg Neutrophils # PT INR APTT Sodium Potassium Chloride Carbon Dioxide Anion Gap BUN Creatinine Estimated GFR BUN/Creatinine Ratio Glucose Calcium Total Bilirubin AST ALT Alkaline Phosphatase Total Creatine Kinase CK-MB (CK-2) CK-MB (CK-2) Rel Index Troponin T Total Protein Albumin Albumin/Globulin Ratio Blood Type O NEGATIVE Antibody Screen Negative Crossmatch See Detail - EKG Data -: EKG Interpreted by Me EKG shows normal: sinus rhythm Rate: normal - EKG Data When compared to previous EKG there are: previous EKG unavailable Interpretation: other (no ischemic changes seen) - Radiology Data Radiology results: report reviewed (right hip x-ray, CT head, CT cervical spine, CT thoracic spine, CT lumbar spine, CT abdomen and pelvis), image reviewed (right hip x-ray, CT head, CT cervical spine, CT thoracic spine, CT lumbar spine, CT abdomen and pelvis) interpreted by me: Right hip x-ray-no acute fracture [facility] [address] [place] [address] XRay Report Signed Patient: LOC CASTANEDA MR#: [id number] : 1955 Acct:[id number] Age/Sex: 64 / M ADM Date: 06/09/19 Loc: ED Attending Dr: Ordering Physician: SANDEEP HIDALGO MD Date of Service: 06/09/19 Procedure(s): XR hip 2-3V RT Accession Number(s): [id number] cc: SANDEEP HIDALGO MD Fluoro Time In Minutes: Right hip, 2 views INDICATION: Pain following fall today FINDINGS: The joint space is maintained. There is no fracture or dislocation. No spurring or arthritic change. No bone lesion or periostitis. No significant abnormality. IMPRESSION: Negative study Signer Name: Leonardo Stovall MD Signed: 06/10/2019 12:47 AM Workstation Name: [id number] Transcribed By: KENNETH Dictated By: Leonardo Stovall MD Electronically Authenticated By: Leonardo Stovall MD Signed Date/Time: 06/10/1946 DD/ TD/TT: [facility] [address] [place] [address] Cat Scan Report Signed Patient: LOC CASTANEDA MR#: [id number] : 1955 Acct:[id number] Age/Sex: 64 / M ADM Date: 06/09/19 Loc: ED Attending Dr: Ordering Physician: SANDEEP HIDALGO MD Date of Service: 06/10/19 Procedure(s): CT abdomen pelvis wo con Accession Number(s): [id number] cc: SANDEEP HIDALGO MD CT of the abdomen and pelvis without contrast INDICATION: Left upper quadrant pain following fall COMPARISON: 06/29/2017 FINDINGS: There is small free flowing pleural effusions. There is large amount of ascites in the upper abdomen. Multiple gallstones are seen. Spleen is not enlarged. The liver is grossly normal. Pancreas and adrenal glands are also unremarkable. Kidneys are now atrophic perhaps due to renal failure. No biliary tree dilation. There is moderate vascular calcification without aneurysm. CT of the pelvis again shows postoperative changes of the right colon. There is moderate to large pelvic asci chinyere. Large amount of stool is seen in the rectum. Bladder shows no gross abnormality. There is generalized anasarca. No definite fracture is seen. IMPRESSION: Large amount of ascites which does not appear to be hemoperitoneum. There is no definite acute traumatic abnormality demonstrated. Automated exposure control was utilized to diminish radiation dose. Signer Name: Leonardo Stovall MD Signed: 06/10/2019 1:45 AM Workstation Name: [id number] Transcribed By: KENNETH Dictated By: Leonardo Stovall MD Electronically Authenticated By: Leonardo Stovall MD Signed Date/Time: 06/10/19144 DD/ 0 TD/TT: [address] [address] Cat Scan Report Signed Patient: LOC CASTANEDA MR#: [id number] : 1955 Acct:[id number] Age/Sex: 64 / M ADM Date: 06/09/19 Loc: ED Attending Dr: Ordering Physician: SANDEEP HIDALGO MD Date of Service: 06/09/19 Procedure(s): CT lumbar spine wo con Accession Number(s): [id number] cc: SANDEEP HIDALGO MD CT lumbar spine INDICATION: Back pain following fall FINDINGS: The vertebral body heights are intact with no compression fractures seen. Intervening disc spaces are maintained as well. There is no spondylolisthesis. No posterior element fracture. There is no significant facet arthropathy. No epidural hematoma or definite disc herniation. No significant abnormality. IMPRESSION: Negative study. All CT scans at this location are performed using CT dose reduction for ALARA by means of automated exposure control Signer Name: Leonardo Stovall MD Signed: 06/10/2019 1:47 AM Workstation Name: [email or web address] Transcribed By: KENNETH Dictated By: Leonardo Stovall MD Electronically Authenticated By: Leonardo Stovall MD Signed Date/Time: 06/10/19146 DD/ 4 TD/TT: [address] [address] Cat Scan Report Signed Patient: LOC CASTANEDA MR#: [id number] : 1955 Acct:[id number] Age/Sex: 64 / M ADM Date: 06/09/19 Loc: ED Attending Dr: Ordering Physician: SANDEEP IHDALGO MD Date of Service: 06/09/19 Procedure(s): CT thoracic spine wo con Accession Number(s): [id number] cc: SANDEEP HIDALGO MD CT of the thoracic spine INDICATION: Back pain following fall tonight FINDINGS: There is no thoracic vertebral body compression fractures seen. No disc herniation or epidural hematoma. No significant facet arthropathy. No significant abnormality. IMPRESSION: Negative study. No acute abnormality seen. All CT scans at this location are performed using CT dose reduction for ALARA by means of automated exposure control Signer Name: Leonardo Stovall MD Signed: 06/10/2019 1:59 AM Workstation Name: [id number] Transcribed By: KENNETH Dictated By: Leonardo Stovall MD Electronically Authenticated By: Leonardo Stovall MD Signed Date/Time: 06/10/19158 DD/ 5 TD/TT: [address] [address] Cat Scan Report Signed Patient: LOC CASTANEDA MR#: [id number] : 1955 Acct:[id number] Age/Sex: 64 / M ADM Date: 06/09/19 Loc: ED Attending Dr: Ordering Physician: SANDEEP HIDALGO MD Date of Service: 06/09/19 Procedure(s): CT cervical spine wo con Accession Number(s): [id number] cc: SANDEEP HIDALGO MD CT of the cervical spine INDICATION: Pain following fall tonight FINDINGS: The vertebral body heights are intact with no compression fractures seen. There is slight disc space narrowing at at C4-C5 and C5-C6 with anterior spurring. No posterior element fracture. No subluxation or facet lock. No epidural hematoma is seen. Odontoid is unremarkable. No significant abnormality. IMPRESSION: Negative cervical spine CT. No acute traumatic abnormality. All CT scans at this location are performed using CT dose reduction for ALARA by means of automated exposure control Signer Name: Leonardo Stovall MD Signed: 06/10/2019 1:56 AM Workstation Name: [id number] Transcribed By: KENNETH Dictated By: Leonardo Stovall MD Electronically Authenticated By: Leonardo Stovall MD Signed Date/Time: 06/10/19155 DD/ 2 TD/TT: [address] [address] Cat Scan Report Signed Patient: LOC CASTANEDA MR#: [id number] : 1955 Acct:[id number] Age/Sex: 64 / M ADM Date: 06/09/19 Loc: ED Attending Dr: Ord ering Physician: SANDEEP HIDALGO MD Date of Service: 08/05/19 Procedure(s): CT head/brain wo con Accession Number(s): [id number] cc: SANDEEP HIDALGO MD Head CT without intravenous contrast INDICATION: Closed head trauma tonight COMPARISON: 06/26/2017 FINDINGS: The ventricles are normal in size and position. No edema or mass effect. No focal infarct seen. Portions of the sinuses visualized are clear. No skull fracture identified. However on image #40 there is now a several millimeter area of high density in the subcortical location involving the right parietal lobe. This was not present previously and may well represent a small area of hemorrhagic contusion. There is no associated subdural collection or skull fracture. The remainder the brain is negative and unchanged. IMPRESSION: Small area of right parietal hemorrhagic contusion. Automated exposure control was utilized to diminish radiation dose Signer Name: Leonardo Stovall MD Signed: 06/10/2019 2:53 AM Workstation Name: [id number] Transcribed By: KENNETH Dictated By: Leonardo Stovall MD Electronically Authenticated By: Leonardo Stovall MD Signed Date/Time: 06/10/19252 DD/ 0249 TD/TT: - Differential Diagnosis closed head injury, ICH, cervical strain, cervical fracture, splenic injury Critical Care Time: Yes Critical care time in (mins) excluding proc time.: 30 Critical care attestation.: If time is entered above; I have spent that time in minutes in the direct care of this critically ill patient, excluding procedure time. ED Disposition Clinical Impression: Cerebral contusion, Hypokalemia, Coagulopathy, Anemia Disposition: DC/TX-70 ANOTHER TYPE HLTHCARE Is pt being admited?: No Does the pt Need Aspirin: No Condition: Serious Referrals: CINDY GONZALES MD [Primary Care Provider] - 3-5 Days Time of Disposition: 04:17 (awaiting transport)
[2019-06-09 22:54] LABS: Partial Thromboplastin Time 52.4 Sec. (24.2-36.6)
[2019-06-09 23:02] LABS: Albumin 0.8 g/dL (3.9-5); Calcium 6.9 mg/dL (8.4-10.2)
[2019-06-09 23:16] LABS: INR 9.43 (0.87-1.13)
[2019-06-09 23:17] LABS: Basophils % (Auto) 0.1 % (0.0-1.8); Eosinophils % (Auto) 0.5 % (0.0-4.3); Hemoglobin 6.7 gm/dl (11.8-15.2); Lymphocytes # (Auto) 1.7 K/mm3 (1.2-5.4); Lymphocytes % (Auto) 42.7 % (13.4-35.0); Mean Corpuscular HGB Conc 35 % (32-34); Mean Corpuscular Volume 99 fl (84-94); Monocytes # (Auto) 0.2 K/mm3 (0.0-0.8); Monocytes % (Auto) 5.2 % (0.0-7.3); Red Blood Count 1.96 M/mm3 (3.65-5.03); Red Cell Distribution Width 15.7 % (13.2-15.2)
[2019-06-09 23:18] LABS: Hematocrit 19.3 % (35.5-45.6); Platelet Count 83 K/mm3 (140-440)
[2019-06-10] MEDS ORDERED: NACL 0.9% 500 ML 500 ML IV ONE (00:06)
[2019-06-10] MEDS ORDERED: VITAMIN K (ADULT ONLY) SUB-Q ONE (00:09)
[2019-06-10] MEDS ORDERED: NACL 0.9% 1000 ML 1,000 ML IV ONE (00:24)
--- NOTE | 2019-06-10 00:51 | XRay Report ---
Right hip, 2 views INDICATION: Pain following fall today FINDINGS: The joint space is maintained. There is no fracture or dislocation. No spurring or arthriti c change. No bone lesion or periostitis. No significant abnormality. IMPRESSION: Negative study Signer Name: Leonardo Stovall MD Signed: 06/10/2019 12:47 AM Workstation Name: [id number]
[2019-06-10] MEDS: KCL 10MEQ/100ML 10 MEQ/100 ML BAG IV SCH ×3 (01:16→04:07)
--- NOTE | 2019-06-10 01:49 | Cat Scan Report ---
CT of the abdomen and pelvis without contrast INDICATION: Left upper quadrant pain following fall COMPARISON: 06/29/2017 FINDINGS: There is small free flowing pleural effusions. There is large amount of ascites in the uppe r abdomen. Multiple gallstones are seen. Spleen is not enlarged. The liver is grossly normal. Pancrea s and adrenal glands are also unremarkable. Kidneys are now atrophic perhaps due to renal failure. No biliary tree dilation. There is moderate vascular calcification without aneurysm. CT of the pelvis again shows postoperative changes of the right colon. There is moderate to large pel rylee ascites. Large amount of stool is seen in the rectum. Bladder shows no gross abnormality. There i s generalized anasarca. No definite fracture is seen. IMPRESSION: Large amount of ascites which does not appear to be hemoperitoneum. There is no definite acute traumatic abnormality demonstrated. Automated exposure control was utilized to diminish radiation dose. Signer Name: Leonardo Stovall MD Signed: 06/10/2019 1:45 AM Workstation Name: [id number]
--- NOTE | 2019-06-10 01:51 | Cat Scan Report ---
CT lumbar spine INDICATION: Back pain following fall FINDINGS: The vertebral body heights are intact with no compression fractures seen. Intervening disc spaces are maintained as well. There is no spondylolisthesis. No posterior element fracture. There is no significant facet arthropathy. No epidural hematoma or definite disc herniation. No significant a bnormality. IMPRESSION: Negative study. All CT scans at this location are performed using CT dose reduction for ALARA by means of automated e xposure control Signer Name: Leonardo Stovall MD Signed: 06/10/2019 1:47 AM Workstation Name: [id number]
--- NOTE | 2019-06-10 02:00 | Cat Scan Report ---
CT of the cervical spine INDICATION: Pain following fall tonight FINDINGS: The vertebral body heights are intact with no compression fractures seen. There is slight d isc space narrowing at at C4-C5 and C5-C6 with anterior spurring. No posterior element fracture. No s ubluxation or facet lock. No epidural hematoma is seen. Odontoid is unremarkable. No significant abno rmality. IMPRESSION: Negative cervical spine CT. No acute traumatic abnormality. All CT scans at this location are performed using CT dose reduction for ALARA by means of automated e xposure control Signer Name: Leonardo Stovall MD Signed: 06/10/2019 1:56 AM Workstation Name: [id number]
--- NOTE | 2019-06-10 02:03 | Cat Scan Report ---
CT of the thoracic spine INDICATION: Back pain following fall tonight FINDINGS: There is no thoracic vertebral body compression fractures seen. No disc herniation or epidu ral hematoma. No significant facet arthropathy. No significant abnormality. IMPRESSION: Negative study. No acute abnormality seen. All CT scans at this location are performed using CT dose reduction for ALARA by means of automated e xposure control Signer Name: Leonardo Stovall MD Signed: 06/10/2019 1:59 AM Workstation Name: [id number]
[2019-06-10] MEDS ORDERED: K-DUR PO ONE (02:23)
--- NOTE | 2019-06-10 02:58 | Cat Scan Report ---
Head CT without intravenous contrast INDICATION: Closed head trauma tonight COMPARISON: 06/26/2017 FINDINGS: The ventricles are normal in size and position. No edema or mass effect. No focal infarct s een. Portions of the sinuses visualized are clear. No skull fracture identified. However on image #40 there is now a several millimeter area of high density in the subcortical location involving the rig ht parietal lobe. This was not present previously and may well represent a small area of hemorrhagic contusion. There is no associated subdural collection or skull fracture. The remainder the brain is n egative and unchanged. IMPRESSION: Small area of right parietal hemorrhagic contusion. Automated exposure control was utilized to diminish radiation dose Signer Name: Leonardo Stovall MD Signed: 06/10/2019 2:53 AM Workstation Name: [id number]
[2019-06-10] MEDS ORDERED: NACL 0.9% 250ML 250 ML ONE (03:26)
[2019-06-10 05:58] VITALS: BP 100/63
== END 2019-06-10 06:00 | disposition other institution (70) ==
LOC: ED 20:44
DX: S06.339A Contusion and laceration of cerebrum, unspecified, with loss of consciousness of unspecified duration, initial encounter (principal); E87.6 Hypokalemia; R10.12 Left upper quadrant pain; D68.9 Coagulation defect, unspecified; D64.9 Anemia, unspecified; F25.0 Schizoaffective disorder, bipolar type; F17.200 Nicotine dependence, unspecified, uncomplicated; Z86.718 Personal history of other venous thrombosis and embolism; Z79.899 Other long term (current) drug therapy; Z88.2 Allergy status to sulfonamides; W10.8XXA Fall (on) (from) other stairs and steps, initial encounter; Y93.89 Activity, other specified; Y92.89 Other specified places as the place of occurrence of the external cause; Y99.8 Other external cause status
CPT/HCPCS: 36415; 36430; 70450; 72125; 72128; 72131; 73502; 74176; 80053; 82550; 82553; 84484; 85025; 85610; 85730; 86850; 86900; 86901; 86920; 93005; 93010; 96365; 96366; 96372; 96375; 99291; J2405; J3010; J3430; J3480; J7030; J7050; P9016; P9017